=== PATIENT | female | born 1945 | race Caucasian/White ===

== ENCOUNTER → 2017-01-05 | Outpatient (CLI) | payer MEDICARE, OTHER ==
--- NOTE | 2017-01-05 13:54 | RADRPT ---
PROCEDURE: XR Pelvis and Hips. CLINICAL INDICATION: Pelvic pain. Bilateral hip pain. TECHNIQUE: Five views. Frontal pelvis. Frontal and lateral right hip. Frontal and lateral left hip. COMPARISON: No prior studies are available for comparison. FINDINGS: There is no fracture or dislocation. The soft tissues are normal. Articular surfaces are intact. There is no lytic or blastic lesion. There is no radiopaque foreign body. IMPRESSION: 1. Unremarkable x-ray pelvis and bilateral hips. RPTAT: QQ .Dangelo Peralta MD, MD Date Time Electronically viewed and signed by .Dangelo Peralta MD, MD on 01/05/2017 13:53 .R/
== END | disposition home or self-care (01) ==
LOC: HKI 13:45
PROVIDERS: ATTEND Orthopaedic Surgery
DX: M70.61 Trochanteric bursitis, right hip (principal); M70.62 Trochanteric bursitis, left hip; M25.551 Pain in right hip; M25.552 Pain in left hip
CPT/HCPCS: 20610; 73523; G0463

== ENCOUNTER → 2017-01-12 | Outpatient (CLI) | payer MEDICARE, OTHER | END | disposition home or self-care (01) | LOC: HKI 13:59 | PROVIDERS: ATTEND Orthopaedic Surgery | DX: M70.61 Trochanteric bursitis, right hip (principal); M70.62 Trochanteric bursitis, left hip; M25.551 Pain in right hip; M25.552 Pain in left hip; M51.36 Other intervertebral disc degeneration, lumbar region; M54.16 Radiculopathy, lumbar region | CPT/HCPCS: 20610; J1030 ==

== ENCOUNTER 2017-09-02 14:22 | Emergency (ER) | payer MEDICARE, OTHER ==
[~2017-09-02] VITALS: Wt 66.0 kg
--- NOTE | 2017-09-02 15:29 | RADRPT ---
PROCEDURE: US Lower extremity Venous. CLINICAL INDICATION: Pain and swelling TECHNIQUE: Multiple sonographic images of the right lower extremity deep venous system was obtaine d utilizing grayscale, color-flow, compressive sonography and doppler imaging with augmentation. Th e images were reviewed on a PACS workstation. COMPARISON: None. FINDINGS: There is normal compressibility and flow within the right common femoral, deep femoral, superficial femoral and popliteal veins. Normal respiratory variation and augmentation is seen. There is normal color flow and compressibility of right posterior tibial and peroneal veins IMPRESSION: No sonographic evidence for right lower extremity deep venous thrombosis. RPTAT: HH .Michael Mckeon MD, MD Date Time Electronically viewed and signed by .Michael Mckeon MD, on 09/02/2017 15:29 .W/
--- NOTE | 2017-09-02 16:01 | ERD ---
ER Documentation Chief Complaint Date/Time DATE: 09/02/17 Chief Complaint Sent by PMD to rule out DVT HPI The patient is a 72-year-old female who presents to the Emergency Department with complaint of right calf pain. The patient reports a history of an "arthritic back" and "sciatic nerve pain" that has been present for "some time. " She notes that recently, her sciatic nerve pain has been radiating down into the right lateral calf. She was seen by her primary medical provider today, Dr. Ricci Carey, at which time she was advised that her symptoms are likely secondary to her underlying sciatica, but she should present to the Emergency Department for ultrasound imaging to rule out DVT. She does note 4 recent long airplane flights. Otherwise, she denies any exogenous estrogen use, recent surgeries, cough, shortness of breath, chest pain, weakness, calf swelling/ redness, or history of DVT/PE. She reports 0/10 pain at this time. No other complaints. ROS All systems reviewed and are negative except as per history of present illness. PMhx/Soc History of Surgery: Yes (breast, plastic sx face) Anesthesia Reaction: No Hx Neurological Disorder: No Hx Respiratory Disorders: No Hx Cardiac Disorders: Yes (htn, murmur) Hx Psychiatric Problems: No Hx Miscellaneous Medical Probl: No Hx Alcohol Use: Yes (occ) Hx Substance Use: No Hx Tobacco Use: No Smoking Status: Never smoker Physical Exam Vitals Vital Signs Date Time Temp Pulse Resp B/P Pulse Ox O2 Delivery O2 Flow Rate FiO2 09/02/17 14:26 97.9 83 20 137/65 99 Physical Exam Const: Well-developed, well-nourished, in no acute distress. Head: Atraumatic Eyes: Normal Conjunctiva ENT: Normal External Ears, Nose and Mouth. Neck: Supple. Full range of motion. Resp: Clear to auscultation bilaterally Cardio: Regular rate and rhythm Skin: No petechiae or rashes Ext: No clubbing, cyanosis, or edema. No calf swelling or calf tenderness. Negative Day's sign. Compartments are soft. No focal erythema or edema. Neur: Awake and alert Psych: Cooperative. Appropriate. Procedures/MDM DIAGNOSTIC TESTS AND INTERPRETATION: PROCEDURE: US Lower extremity Venous. TECHNIQUE: Multiple sonographic images of the right lower extremity deep venous system was obtained utilizing grayscale, color-flow, compressive sonography and doppler imaging with augmentation. The images were reviewed on a PACS workstation. COMPARISON: None. FINDINGS: There is normal compressibility and flow within the right common femoral, deep femoral, superficial femoral and popliteal veins. Normal respiratory variation and augmentation is seen. There is normal color flow and compressibility of right posterior tibial and peroneal veins IMPRESSION:No sonographic evidence for right lower extremity deep venous thrombosis. .Michael Mckeon MD, MD Date Time Electronically viewed and signed by .Michael Mckeon MD, on 09/02/2017 15:29 MEDICAL DECISION MAKING: This is a 72-year-old FEmale presenting to the Emergency Department with complaint of right lower extremity pain. On physical examination, no calf tenderness, erythema, swelling, or gross deformity was noted. The patient has a negative Homans sign. No recent history of trauma. No chest pain or shortness of breath. Ultrasound imaging performed was negative for acute DVT. At this time the patient is in stable condition and therefore can be discharged home with strict return precautions for signs of deteriorating or worsening condition. The patient is advised to follow up with their primary care provider within 2-3 days for reevaluation and further management, or return to the ER sooner for any worsening symptoms. I shared my medical decision making and plan with the patient at length and in great detail , and the patient verbally understands and agrees with the plan for further observation and care as an outpatient. At the time of discharge, all questions were answered. Departure Diagnosis: Primary Impression: Pain of right calf Additional Impression: History of sciatica Condition: Stable Patient Instructions: Preventing Deep Vein Thrombosis, Understanding Sciatica Additional Instructions: Call your primary care doctor TOMORROW for an appointment during the next 2-3 days.See the doctor sooner or return here if your condition worsens before your appointment time. FREDDIE SOLORIO PA-C Sep 02, 2017 16:01
== END 2017-09-02 16:30 | disposition home or self-care (01) ==
LOC: FTE 14:22
DX: M79.604 Pain in right leg (principal); I10 Essential (primary) hypertension; Z87.39 Personal history of other diseases of the musculoskeletal system and connective tissue
CPT/HCPCS: 93971

== ENCOUNTER 2018-02-08 13:20 | Inpatient (IN) | END 2018-02-10 13:30 | disposition home or self-care (01) | DRG 517 ==

== ENCOUNTER 2019-05-30 09:55 | Inpatient (IN) | payer MEDICARE, OTHER ==
--- NOTE | 2019-05-26 14:23 | PREOPHP ---
DATE OF ADMISSION: 05/30/2019 PREOPERATIVE MEDICAL HISTORY AND PHYSICAL: Patient to have surgery with Dr. Ricci Morales, 05/30/2019. REASON FOR CONSULTATION: Consultation requested by Dr. Ricci Morales for medical evaluation and cl earance of a 73-year-old woman about to undergo surgery. Thank you, Dr. Morales, for allowing us to participate in the care of this patient. HISTORY OF PRESENT ILLNESS: La Mni is a 73-year-old woman who has had issues with her back, mos t recent surgery was a laminectomy in 01/2018, which did not totally get rid of her problem and curre ntly being admitted for anterior and posterior fusion of her lumbar spine. PAST MEDICAL AND SURGICAL HISTORY: She has not had any medical hospitalizations. Her pregnancies we re vaginal deliveries. SURGERIES: Included laminectomy as mentioned on 01/2018, cosmetic surgery, and right breast biopsy m any years ago. She has not broken any bones. MEDICATIONS: She is currently taking the followin. Benicar 20 mg a day. 2. Pravastatin 20 mg a day. 3. Boniva 150 mg a day. 4. Variety of supplements. ALLERGIES: SHE IS NOT ALLERGIC TO ANY MEDICATIONS. SOCIAL HISTORY: The patient is , has a son and a daughter and 4 grandchildren. She does not smoke. Alcohol socially. Does drink coffee. Has no difficulty sleeping at night and is currently retired. FAMILY HISTORY: Both parents are . Father at age 76, had lung cancer and an [place]. Tere fisher at age 82 of a stroke, hypertension and 1 brother from a bleeding ulcer in his 50s. There is a family history of heart, cancer, hypertension, and stroke. REVIEW OF SYSTEMS: HEENT: Periodic ocular migraines and occasional headaches. CARDIORESPIRATORY: Denies any chest pain or shortness of breath. GASTROINTESTINAL: No melena or hematemesis, but does have irritable bowel syndrome. GENITOURINARY: No urgency, frequency. GYNECOLOGIC: Postmenopause. Up to date. MUSCULOSKELETAL: Positive for back pain. NEUROPSYCHIATRIC: Unremarkable. GENERAL HEALTH: As above. PHYSICAL EXAMINATION: VITAL SIGNS: The patient's blood pressure was 136/64, pulse was 88 and regular, respirations were 18 , temperature 98.3. Height 5 feet 4 inches, weight 138.5 pounds. GENERAL: The patient was noted to be a well-developed, well-nourished female in no apparent acute di stress, oriented to time, place, and person. HEAD, EARS, EYES, NOSE AND THROAT: Head was atraumatic. Eyes: Pupils were equal, reactive to light and accommodation. Fundi were benign. Tympanic membranes were unremarkable. Nose was negative. M outh was unremarkable. Fair oral hygiene was present. NECK: Supple without any rigidity. Trachea was midline. Thyroid was within normal limits. Neck ve ins were flat. Carotid pulses were equal. No bruits were heard. BACK: Remarkable in the fact that she had a fairly severe lumbar scoliosis deformity. Scar from keyanna or surgery was noted as well. CHEST: Symmetrical. Breasts and axillary exam did not reveal any obvious masses. Right breast, gvain e scarring with no axillary or breast masses. LUNGS: Clear to percussion and auscultation. HEART: PMI is fifth intercostal space at the midclavicular line. Regular sinus rhythm was noted. N o significant murmurs, rubs, or gallops being elicited. ABDOMEN: Soft, good bowel sounds were noted. No significant organomegaly, masses, or tenderness. GENITALIA: PELVIC/RECTAL: Per educational therapist. EXTREMITIES: Did not reveal any clubbing, edema or cyanosis. Peripheral pulses were physiologic. SKIN: Moist and warm without any eruptions. No gross lymphadenopathy was noted. NEUROLOGIC: Grossly intact. IMPRESSION: 1. Lumbar disk disease and lumbar stenosis as well as scoliosis. 2. Hypertension. 3. Hyperlipidemia. 4. Post-menopause. 5. Stable health. LABORATORY DATA: Review of laboratory and other data revealed the following: The patient's chemistr y panel revealed electrolytes that revealed a sodium of 129, chloride of 91 compatible with diuretic use, normal potassium and CO2 glucose random was 115, BUN and creatinine were normal. Calcium and ur ic acid proteins were normal. Liver function tests revealed minimal elevations of SGPT, SGOT, magnes ium and serum iron were normal. CBC, UA, PT and PTT were normal. Patient's chest x-ray revealed a k yphotic deformity, some degenerative joint disease, no acute infiltrates were noted nor were there an y acute cardiopulmonary changes noted. EKG per Dr. Greenfield, patient's elementary esl teacher was giving h er cardiac clearance from what I understand. It showed no acute changes or any changes that would p revent her from having her current surgery. DISCUSSION: Dr. Morales, I see no contraindication to this patient undergoing current proposed henry tito under desired form of anesthesia. I feel she is a suitable candidate at this particular point i n time and will be more than happy to follow her along with you during her stay at [facility]. Thank you again, Dr. Morales, for allowing us to participate in the care of this patient. Dictated By: YU EDGAR MD SS/NTS Conf#: [id number] DID#: [id number] CC: RICCI MORALES MD;*EndCC*
[~2019-05-30] VITALS: Ht 162.6 cm; Wt 62.2 kg
[2019-05-30] VITALS (26 sets, daily range): BP systolic 130–171; BP diastolic 60–92; PULSE 81–129; RESP 8–26; Ht 162.6 cm; Wt 62.2 kg
[~2019-05-30 09:55] MED LIST: BROM500T2 PO; IBAN150T7 PO; OLME20TA PO; PRAV20TA2 PO
[2019-05-30] MEDS ORDERED: THROMBIN 5000 UNIT VIAL ONE (10:55)
[2019-05-30] MEDS ORDERED: BUPIVACAINE 0.5%/EPI (SDV) 30 ML INJ ONE (10:55)
[2019-05-30] MEDS ORDERED: CA CHLORIDE 10% 10 ML SYRINGE ONE (10:56)
[2019-05-30] MEDS ORDERED: HEPARIN 1000 UNITS/ML 10 ML INJ ONE (10:57)
[2019-05-30] MEDS ORDERED: ROCURONIUM 50 MG INJ ONE (11:06)
[2019-05-30] MEDS ORDERED: CEFAZOLIN 1 GM INJ ONE (11:06)
[2019-05-30] MEDS ORDERED: NEOSTIGMINE 3 MG/3 ML SYRINGE ONE (11:06)
[2019-05-30] MEDS ORDERED: GLYCOPYRROLATE 0.4 MG INJ ONE (11:06)
[2019-05-30] MEDS ORDERED: DESFLURANE 15 MIN ONE (11:06)
[2019-05-30] MEDS ORDERED: PROPOFOL 20 ML ONE (11:06)
[2019-05-30] MEDS ORDERED: DEXAMETHASONE 4 MG/ML 5 ML INJ ONE (11:07)
[2019-05-30] MEDS ORDERED: MIDAZOLAM 1 MG/ML 2 ML INJ ONE (11:07)
[2019-05-30] MEDS ORDERED: ONDANSETRON 4 MG INJ ONE (11:07)
[2019-05-30] MEDS ORDERED: POLYMYXIN/BACITRACIN 1L IRRIG ONE (11:10)
[2019-05-30] MEDS ORDERED: LACTATED RINGER'S 1,000 ML IV SCH (11:30)
--- NOTE | 2019-05-30 11:30 | PREAC ---
Date/Time of Note Date/Time of Note DATE: 05/30/19 TIME: Anesthesia Eval and Record Evaluation Time Pre-Procedure Interview DATE: 05/30/19 TIME: Age 73 Sex female NPO: 8 hrs Preoperative diagnosis DEGENERATIVE SCOLIOSIS Planned procedure ANTERIOR LUMBAR INTERBODY FUSION, RETROPERITONEAL OR FAR LATERAL APPROACH, AUTOGRAFT, ALLOGRAFT, SYNTHETIC GRAFT, BONE MARROW ASPIRATION INSTRUMENTATION ILIAC CREST BONE GRAFT, L2-L3 AND L3-L4 Past Medical History Past Medical History: Includes Cardio: HTN, Dyslipidemia Surgery & Anesthesia Issues No known issue Meds Anticoagulation: No Beta Iman within 24 hr: No Reason Beta Iman not given: Pt. not on B-Iman Reported Medications Bromelains (BROMELAINS) 500 Mg Tablet, 500 MG PO DAILY, TAB 02/08/18 Ibandronate Sodium* (Boniva*) 150 Mg Tablet, 150 MG PO ONCE A MONTH, TAB 02/08/18 Olmesartan Medoxomil (Olmesartan Medoxomil) 20 Mg Tablet, 20 MG PO DAILY, TAB 02/08/18 Pravastatin Sodium (Pravastatin Sodium) 20 Mg Tablet, 20 MG PO HS, TAB 02/08/18 Meds reviewed: Yes Allergies Coded Allergies: morphine (Verified Allergy, Intermediate, 05/30/19) acetaminophen (Verified Adverse Reaction, Unknown, VOMITING, 02/08/18) hydrocodone (Verified Adverse Reaction, Unknown, VOMITING, 02/08/18) Allergies Reviewed: Yes Labs/Studies Labs Reviewed: Reviewed by anesthesiologist test: N/A Studies: ECG, CXR Pre-procedure Exam Last vitals Vital Signs Date Temp Pulse Resp B/P (MAP) Pulse Ox O2 O2 Flow FiO2 Time Delivery Rate 05/30/19 97.3 81 18 155/91 96 Room Air 11:11 (112) Airway: Adequate mouth opening Mallampati: Mallampati II Teeth: Normal Lung: Normal Heart: Normal ASA Physical Status ASA physical status: 2 Emergency: None Planned Anesthetic General/MAC: ETT Pre-operative Attestations Prior to commencing anesthesia and surgery, the patient was re-evaluated, there was verification of: *The patient's identity *The results of appropriate recent lab work and preoperative vital signs *The above evaluation not changing prior to induction *Anesthetic plan, risk benefits, alternative and complications discussed with patient/family; questions answered; patient/family understands, accepts and wishes to proceed. FRANCISCO JAVIER RUSSELL May 30, 2019 11:30
--- NOTE | 2019-05-30 12:19 | HPN ---
Date/Time of Note Date/Time of Note DATE: 05/30/19 TIME: 12:19 Interval H&P Admission Note Pt. seen H&P reviewed: No system changes JACKSON MIRANDA PA-C May 30, 2019 12:19
[2019-05-30] MEDS ORDERED: IPRATROPIUM (NEB) 0.5 MG/2.5 ML AMP HHN PRN (12:30)
[2019-05-30] MEDS ORDERED: DIPHENHYDRAMINE 25 MG CAP PO PRN (12:30)
[2019-05-30] MEDS ORDERED: LABETALOL HCL 20MG INJ IV PRN (12:30)
[2019-05-30] MEDS ORDERED: AL HYDROX/MG HYDROX/SIMETH 30 ML CUP PO PRN (12:30)
[2019-05-30] MEDS ORDERED: FENTAnyl 50 MCG/ML VIAL IV PRN ×3 (12:30)
[2019-05-30] MEDS ORDERED: HYDROmorphONE 1 MG/5 ML IV SYRINGE IV PRN ×3 (12:30)
[2019-05-30] MEDS ORDERED: EPHEDrine 25 MG/5 ML SYG IV PRN (12:30)
[2019-05-30] MEDS ORDERED: CEFAZOLIN 1 GM/50 ML (PMX) 50 ML IVPB SCH (12:30)
[2019-05-30] MEDS ORDERED: CYCLOBENZAPRINE 10 MG TAB PO PRN (12:30)
[2019-05-30] MEDS ORDERED: ACETAMINOPHEN 325 MG TAB PO PRN (12:30)
[2019-05-30] MEDS ORDERED: MIDAZOLAM 1 MG/ML 2 ML INJ IV PRN (12:30)
[2019-05-30] MEDS ORDERED: MEPERIDINE 25 MG INJ IV PRN (12:30)
[2019-05-30] MEDS ORDERED: TRIMETHOBENZAMIDE 100 MG/ML VIAL IM PRN (12:30)
[2019-05-30] MEDS ORDERED: BISACODYL 10 MG SUPP PR PRN (12:30)
[2019-05-30] MEDS ORDERED: ALBUTEROL 0.083% (NEB) 2.5 MG/3 ML AMP HHN PRN (12:30)
[2019-05-30] MEDS ORDERED: ONDANSETRON 4 MG INJ IV PRN ×2 (12:30)
[2019-05-30] MEDS ORDERED: DIPHENHYDRAMINE 50 MG INJ IV PRN ×2 (12:30)
[2019-05-30] MEDS ORDERED: CEPASTAT LOZENGE MT PRN (12:30)
[2019-05-30] MEDS ORDERED: NALOXONE (0.4 MG/ML) INJ IV PRN (12:30)
[2019-05-30] MEDS ORDERED: hydrALAzine 20 MG INJ IV PRN (12:30)
[2019-05-30] MEDS ORDERED: HYDROmorphONE 0.5 MG/0.5 ML SYG IV PRN (12:30)
[2019-05-30] MEDS ORDERED: hydrALAzine 20 MG INJ ONE (14:11)
[2019-05-30] MEDS ORDERED: SUGAMMADEX SODIUM 200 MG/2 ML VIAL IV ONE (15:07)
[2019-05-30] MEDS ORDERED: FENTAnyl 50 MCG/ML VIAL ONE (15:23)
--- NOTE | 2019-05-30 15:29 | SIPON ---
Date/Time of Note Date/Time of Note DATE: 05/30/19 TIME: 15:28 Operative Report Preoperative Diagnosis Degenerative scoliosis Postoperative Diagnosis Degenerative scoliosis Operation/Procedure Performed L2-3 and L3-4 anterior fusion Surgeon see signature line patient support assistant Rosalba Cross Anesthesia: general Estimated blood loss: 10 - 50 ml's Transfusion Required none Specimen Disc Grafts/Implants Mcgregor Complications none MEAGAN DURAN MD May 30, 2019 15:29
--- NOTE | 2019-05-30 15:35 | PAC ---
Date/Time of Note Date/Time of Note DATE: 05/30/19 TIME: 15:35 Post-Anesthesia Notes Post-Anesthesia Note Last documented vital signs Vital Signs Date Temp Pulse Resp B/P (MAP) Pulse Ox O2 O2 Flow FiO2 Time Delivery Rate 05/30/19 97.3 81 18 155/91 96 Room Air 11:11 (112) Activity: WNL Respiratory function: WNL Cardiovascular function: WNL Mental status: Baseline Pain reasonably controlled: Yes Hydration appropriate: Yes Nausea/Vomiting absent: Yes Freddie Rodriguez M.D. May 30, 2019 15:35
[2019-05-30] MEDS: HYDROmorphONE 0.2 MG/ML PCA IV SCH ×2 (16:00→21:40)
--- NOTE | 2019-05-30 17:41 | PN ---
Date/Time of Note Date/Time of Note DATE: 05/30/19 TIME: 17:39 Assessment/Plan VTE Prophylaxis SCD applied (from Nsg): Yes SCD contraindicated: other (Immediately post anterior and posterior spinal fusion) Pharmacological prophylaxis: heparin Lines/Catheters IV Catheter Type (from Nrsg): Peripheral IV Assessment/Plan Problems: (1) S/P lumbar and lumbosacral fusion by anterior technique Onset Date: ~ 05/30/2019 Status: Acute Comment: Postop without apparent complications. Continue to follow her along. Anticoagulation and SCD devices. (2) Hyperlipidemia Status: Chronic Comment: And continue with statin therapy. Qualifiers: Hyperlipidemia type: pure hypercholesterolemia Qualified Codes: E78.00 - Pure hypercholesterolemia, unspecified (3) Hypertension Status: Chronic Comment: Continue with outpatient regimen without change. Qualifiers: Hypertension type: essential hypertension Qualified Codes: I10 - Essential (primary) hypertension Results 24hrs Laboratory Tests Test 05/30/19 13:20 Urine Color STRAW Urine Clarity CLEAR Urine pH 7.0 Urine Specific Rosalie 1.008 Urine Ketones TRACE A Urine Nitrite NEGATIVE Urine Bilirubin NEGATIVE Urine Urobilinogen NEGATIVE Urine Leukocyte Esterase NEGATIVE Urine Hemoglobin NEGATIVE Urine Glucose 1+ H Urine Total Protein NEGATIVE Subjective 24 Hr Interval Summary Free Text/Dictation She is immediately postop and transferred to the orthopedic unit. Complains of significant back pain. No other complaints Constitutional: no complaints (No fevers chills or sweats) Respiratory: no complaints (No cough no wheezing no shortness of breath) Cardiovascular: no complaints (No chest pain no palpitations no orthopnea no PND) Gastrointestinal: no complaints (No nausea vomiting abdominal pain) Exam/Review of Systems Exam Vitals Vital Signs Date Temp Pulse Resp B/P (MAP) Pulse Ox O2 O2 Flow FiO2 Time Delivery Rate 05/30/19 98.8 110 17 148/65 99 17:36 (92) 05/30/19 Nasal 16:43 Cannula 05/30/19 2.0 16:13 Constitutional: alert, oriented Respiratory: clear to auscultation, normal air movement Cardiovascular: regular rate and rhythm, nl pulses Gastrointestinal: soft, nl liver, spleen, non-tender Results Results 24hrs Laboratory Tests Test 05/30/19 13:20 Urine Color STRAW Urine Clarity CLEAR Urine pH 7.0 Urine Specific Rosalie 1.008 Urine Ketones TRACE A Urine Nitrite NEGATIVE Urine Bilirubin NEGATIVE Urine Urobilinogen NEGATIVE Urine Leukocyte Esterase NEGATIVE Urine Hemoglobin NEGATIVE Urine Glucose 1+ H Urine Total Protein NEGATIVE Medications Medication Current Medications Potassium Chloride/Dextrose/ Sod Cl 1,000 ml @ 100 mls/hr Q10H IV ; Start 05/30/19 at 12:19 Hydromorphone HCl (Dilaudid) 0.2 mg Q1H PRN IV .BREAKTHROUGH PAIN; Start 05/30/19 at 12:30 Cefazolin Sodium 50 ml @ 100 mls/hr Q8H IVPB ; Start 05/30/19 at 12:30; Stop 05/31/19 at 04:59 Ondansetron HCl (Zofran Inj) 4 mg Q6H PRN IV NAUSEA/VOMITING; Start 05/30/19 at 12:30 Bisacodyl (Dulcolax Supp) [address] .CONSTIPATION; Start 05/30/19 at 12:30 Docusate Sodium (Colace) 100 mg BID PO ; Start 05/30/19 at 21:00 Al Hydrox/Mg Hydrox/Simethicone (Mag-Al Plus) 15 ml Q6H PRN PO .CONSTIPATION/DYSPEPSIA; Start 05/30/19 at 12:30 Acetaminophen (Tylenol Tab) 650 mg Q4H PRN PO GARCIA OR TEMP GREATER THAN 101.3F; Start 05/30/19 at 12:30 Cyclobenzaprine HCl (Flexeril) 5 mg TID PRN PO .MUSCLE SPASM; Start 05/30/19 at 12:30 Phenol (Cepastat Lozenge) 1 lozenge PRN PRN MT .SORE THROAT; Start 05/30/19 at 12:30 Diphenhydramine HCl (Benadryl) 25 mg Q6H PRN PO .ITCHING; Start 05/30/19 at 12:30 Diphenhydramine HCl (Benadryl) 25 mg Q6H PRN IV .ITCHING; Start 05/30/19 at 12:30 Naloxone HCl (Narcan) 0.2 mg Q2M PRN IV .RR 8 BREATHS/MIN OR LESS; Start at 12:30 Hydromorphone HCl (Dilaudid SERVICE OPERATOR) SERVICE OPERATOR to be started in PACU Q4PCA IV Last administered on 05/30/19at 16:00; Admin Dose 6 MG; Start 05/30/19 at 12:30; Stop 06/01/19 at 10:00 Miscellaneous Information 1. Hold SERVICE OPERATOR at 1,000... SERVICE OPERATOR IV ; Start 05/30/19 at 12:30 Oxycodone HCl (Roxicodone) 5 mg Q4H PRN PO MODERATE PAIN LEVEL 4-6; Start 06/01/19 at 09:30 Hydromorphone HCl (Dilaudid) 0.2 mg PACU PRN IV MILD PAIN 1-3; Start 05/30/19 at 12:30; Stop 05/30/19 at 18:00 Hydromorphone HCl (Dilaudid) 0.4 mg PACU PRN IV MOD PAIN 4-6 Last administered on 05/30/19at 16:18; Admin Dose 0.4 MG; Start 05/30/19 at 12:30; Stop 05/30/19 at 18:00 Hydromorphone HCl (Dilaudid) 0.6 mg PACU PRN IV SEVERE PAIN 7-10 Last administered on 05/30/19at 15:49; Admin Dose 0.6 MG; Start 05/30/19 at 12:30; Stop 05/30/19 at 18:00 Fentanyl (Sublimaze) 25 mcg PACU ORDER PRN IV MILD PAIN 1-3; Start 05/30/19 at 12:30; Stop 05/30/19 at 18:00 Fentanyl (Sublimaze) 50 mcg PACU ORDER PRN IV MOD PAIN 4-6; Start 05/30/19 at 12:30; Stop 05/30/19 at 18:00 Fentanyl (Sublimaze) 75 mcg PACU ORDER PRN IV SEVERE PAIN 7-10; Start 05/30/19 at 12:30; Stop 05/30/19 at 18:00 Ondansetron HCl (Zofran Inj) 4 mg PACU ORDER PRN IV NAUSEA/VOMITING Last administered on 05/30/19at 15:48; Admin Dose 4 MG; Start 05/30/19 at 12:30; Stop 05/30/19 at 18:00 Trimethobenzamide HCl (Tigan) 200 mg PACU ORDER PRN IM NAUSEA/VOMITING; Start 05/30/19 at 12:30; Stop 05/30/19 at 18:00 Labetalol HCl (Labetalol) 5 mg PACU ORDER PRN IV HIGH BLOOD PRESSURE; Start 05/30/19 at 12:30; Stop 05/30/19 at 18:00 Hydralazine HCl (Apresoline) 5 mg PACU ORDER PRN IV HIGH BLOOD PRESSURE; Start 05/30/19 at 12:30; Stop 05/30/19 at 18:00 Ephedrine Sulfate 5 mg PACU ORDER PRN IV BLOOD PRESSURE SUPPORT; Start 05/30/19 at 12:30; Stop 05/30/19 at 18:00 Albuterol (Proventil 0.083% (Neb)) 2.5 mg PACU ORDER PRN HHN .WHEEZING; Start 05/30/19 at 12:30; Stop 05/30/19 at 18:00 Ipratropium [place] (Atrovent 0.02% (Neb)) 0.5 mg PACU ORDER PRN HHN .WHEEZING; Start 05/30/19 at 12:30; Stop 05/30/19 at 18:00 Meperidine HCl (Demerol) 25 mg PACU ORDER PRN IV .RIGORS; Start 05/30/19 at 12:30; Stop 05/30/19 at 18:00 Diphenhydramine HCl (Benadryl) 25 mg PACU ORDER PRN IV .PRURITUS Last administered on 05/30/19at 16:22; Admin Dose 25 MG; Start 05/30/19 at 12:30; Stop 05/30/19 at 18:00 Midazolam HCl (Versed) 0.5 mg PACU ORDER PRN IV .ANXIETY; Start 05/30/19 at 12:30; Stop 05/30/19 at 18:00 IVANA BOSTON MD May 30, 2019 17:41
[2019-05-30] MEDS: D5W-0.45 NACL + KCL 20 MEQ 1,000 ML IV SCH ×2 (17:47→22:19)
--- NOTE | 2019-05-30 19:56 | OPR ---
DATE OF OPERATION: 05/30/2019 PREOPERATIVE DIAGNOSIS: Degenerative lumbar scoliosis with stenosis and radiculopathy: POSTOPERATIVE DIAGNOSIS: Degenerative lumbar scoliosis with stenosis and radiculopathy: PROCEDURE: 1. Anterior lumbar interbody fusion at L2-L3 and L3-L4. 2. Placement of intervertebral mechanical device at L2-L3 and L3-L4. 3. Use of allograft. 4. Use of operative microscope. 5. Use of C-arm fluoroscopy with interpretation without radiologist present. 6. Intraoperative neuromonitoring. PRIMARY SURGEON: Ricci Morales MD SECOND DECAY CONTROL OPERATOR: Rosalba Cross PA-C NEED FOR RETAIL DEPARTMENT SUPERVISOR: During this spinal surgical procedure, my assistant corporate controller was used to retract and protect the spinal nerves and dural sac. My assistant corporate controller also employed the suction catheters to evacuate blood from the surgical field to improve visualization of the neural structures. The assistant corporate controller was medically necessary to facilitate the completion of the surgery in a safe and expeditious manner. [facility] regulations, as well as hospital bylaws, preclude the use of non-licensed health care personnel, such as operating room technicians, to perform these functions. FINDINGS: Neuromonitoring at the start of the case revealed left L3 amplitude down 50%, right L4 down 30%, left L5 down 80%. At the end of the case, nerve signals returned to normal. The patient had significant disk collapse and scoliosis. IMPLANTS: 1. [place] 8 x 10 x 40 mm cage at L3-L4 and L2-L3. 2. Biosphere. ESTIMATED BLOOD LOSS: Less than 30 mL. DRAINS: None. SPECIMENS: Disk from L2-L3 and L3-L4. DRAINS: None. COMPLICATIONS OF PROCEDURES: None. ANESTHESIOLOGIST: Freddie Rodriguez MD TYPE OF ANESTHESIA: General. INDICATIONS FOR PROCEDURE: This is a 73-year-old female who had previously undergone lumbar decompression. She developed a scoliotic curvature with disk degeneration and stenosis. Given that she failed nonoperative measures, I have recommended that she undergo the above procedure. Preoperatively, we discussed risks, benefits, and alternatives. She understood and wished to proceed. DESCRIPTION OF PROCEDURE IN DETAIL: The patient was identified in the preoperative holding area, given Ancef antibiotic, taken to the operating room, where she was successfully placed under general anesthesia. Neuromonitoring leads were placed and sequential compressive devices were applied. Pagan catheter was introduced. Remote intraoperative neuromonitoring was performed by Dr. Saldana from 11:00 until 3:10 to include SSEP, MEP, and EMG performed by [facility]. The patient was placed in left lateral decubitus position and secured to the table. Bed was flexed. The patient was then prepped and draped in usual sterile fashion. Incision was made laterally over the L2-L3 and L3-L4 level. I then finger dissected into the retroperitoneal space. I then placed a dilator onto the L2-L3 level and confirmed placement using the sterile fluoroscope. I utilized neuromonitoring along the way. I then passed a guidewire followed by larger dilators. I then placed a retractor and exposed the anulus and confirmed that there were no neural elements in the field. I then made an annulotomy followed by a radical diskectomy. I prepared the endplates and placed various trials. I then took the PEEK cage, within which I placed allograft, and I impacted with the mechanical device into the L2-L3 level to complete the anterior lumbar interbody fusion at L2-L3. I then turned my attention to the L3-L4 level and repeated all the steps. I made an annulotomy followed by a radical diskectomy. I then placed various trials and chose the appropriate graft height. I then took the PEEK cage, within which I placed allograft, and I impacted the intervertebral mechanical device into the L3-L4 level to complete the anterior lumbar interbody fusion at L3-4. Once all the hardware was in place, I took AP and lateral images and I was happy with most of the hardware and alignment of the spine. The wound was then irrigated. Wound was dry. I removed the retractors and closed the wound in layers with #1 Vicryl, 2-0 Vicryl and 4-0 Monocryl closure. Dermabond was then applied. The patient was then awakened from anesthesia and taken to the recovery room in stable condition. Lap, sponge, and instrument counts were correct x2. There were no apparent complications during the procedure. The patient will be admitted to the recovery room, and once stable will be taken to the [facility] for routine postoperative care to include pain control, neurovascular checks, antibiotics, and physical therapy. The patient will return to the operating room for stage II on 05/31/2019. Dictated By: RICCI MORATAYA/NIMCO Conf#: [id number] [facility]#: [id number] MTDD
[2019-05-30] MEDS ORDERED: DOCUSATE SODIUM 100 MG CAP PO SCH (21:00)
[2019-05-30] MEDS: ATORVASTATIN 10 MG TAB PO SCH (21:16)
[2019-05-30] MEDS ORDERED: LORAZEPAM 1 MG TAB PO PRN (22:30)
[2019-05-31] VITALS (19 sets, daily range): BP systolic 100–159; BP diastolic 52–92; PULSE 19–95; RESP 10–68
[2019-05-31] MEDS ORDERED: CEFAZOLIN 2 GM/50 ML (PMX) 50 ML IVPB ONE (00:30)
[2019-05-31] MEDS: CEFAZOLIN 1 GM/50 ML (PMX) 50 ML IVPB SCH ×3 (04:35→22:41)
[2019-05-31] MEDS: D5W-0.45 NACL + KCL 20 MEQ 1,000 ML IV SCH ×2 (04:36→15:18)
--- NOTE | 2019-05-31 06:46 | PREAC ---
Date/Time of Note Date/Time of Note DATE: 05/31/19 TIME: 06:44 Anesthesia Eval and Record Evaluation Time Pre-Procedure Interview DATE: 05/31/19 TIME: 06:44 Age 73 Sex female NPO: 8 hrs Preoperative diagnosis Degenerative lumbar scoliosis with radiculopathy L2-S1 Planned procedure Anterior L4-5 interbody instrumented fusion with graft, posterior instrumented fusion L2-S1 Past Medical History Past Medical History: Includes Cardio: HTN, Dyslipidemia GI: GERD Surgery & Anesthesia Issues No known issue Meds Anticoagulation: No Beta Iman within 24 hr: No Reason Beta Iman not given: Pt. not on B-Iman Reported Medications Bromelains (BROMELAINS) 500 Mg Tablet, 500 MG PO DAILY, TAB 02/08/18 Ibandronate Sodium* (Boniva*) 150 Mg Tablet, 150 MG PO ONCE A MONTH, TAB 02/08/18 Olmesartan Medoxomil (Olmesartan Medoxomil) 20 Mg Tablet, 20 MG PO DAILY, TAB 02/08/18 Pravastatin Sodium (Pravastatin Sodium) 20 Mg Tablet, 20 MG PO HS, TAB 02/08/18 Current Medications Potassium Chloride/Dextrose/ Sod Cl 1,000 ml @ 100 mls/hr Q10H IV Last administered on 05/31/19at 04:36; Admin Dose 100 MLS/HR; Start 05/30/19 at 12:19 Hydromorphone HCl (Dilaudid) 0.2 mg Q1H PRN IV .BREAKTHROUGH PAIN; Start 05/30/19 at 12:30 Ondansetron HCl (Zofran Inj) 4 mg Q6H PRN IV NAUSEA/VOMITING; Start 05/30/19 at 12:30 Bisacodyl (Dulcolax Supp) [address] .CONSTIPATION; Start 05/30/19 at 12:30 Docusate Sodium (Colace) 100 mg BID PO Last administered on 05/30/19at 21:16; Admin Dose 100 MG; Start 05/30/19 at 21:00 Al Hydrox/Mg Hydrox/Simethicone (Mag-Al Plus) 15 ml Q6H PRN PO .CONSTIPATION/DYSPEPSIA; Start 05/30/19 at 12:30 Acetaminophen (Tylenol Tab) 650 mg Q4H PRN PO GARCIA OR TEMP GREATER THAN 101.3F; Start 05/30/19 at 12:30 Cyclobenzaprine HCl (Flexeril) 5 mg TID PRN PO .MUSCLE SPASM Last administered on 05/30/19at 17:47; Admin Dose 5 MG; Start 05/30/19 at 12:30 Phenol (Cepastat Lozenge) 1 lozenge PRN PRN MT .SORE THROAT; Start 05/30/19 at 12:30 Diphenhydramine HCl (Benadryl) 25 mg Q6H PRN PO .ITCHING; Start 05/30/19 at 12:30 Diphenhydramine HCl (Benadryl) 25 mg Q6H PRN IV .ITCHING; Start 05/30/19 at 12:30 Naloxone HCl (Narcan) 0.2 mg Q2M PRN IV .RR 8 BREATHS/MIN OR LESS; Start 05/30/19 at 12:30 Hydromorphone HCl (Dilaudid WOOL GROWER) WOOL GROWER to be started in PACU Q4PCA IV Last administered on 05/30/19at 21:40; Admin Dose 6 MG; Start 05/30/19 at 12:30; Stop 06/01/19 at 10:00 Miscellaneous Information 1. Hold WOOL GROWER at 1,000... WOOL GROWER IV ; Start 05/30/19 at 12:30 Oxycodone HCl (Roxicodone) 5 mg Q4H PRN PO MODERATE PAIN LEVEL 4-6; Start 06/01/19 at 09:30 Losartan Potassium (Cozaar) 100 mg DAILY PO ; Start 05/31/19 at 09:00 Atorvastatin Calcium (Lipitor) 10 mg HS PO Last administered on 05/30/19at 21:16; Admin Dose 10 MG; Start 05/30/19 at 21:00 Lorazepam (Ativan) 1 mg QHS PRN PO INSOMNIA or anxiety Last administered on 05/30/19at 22:29; Admin Dose 1 MG; Start 05/30/19 at 22:30 Cefazolin Sodium 50 ml @ 100 mls/hr Q8H IVPB Last administered on 05/31/19at 04:35; Admin Dose 100 MLS/HR; Start 05/31/19 at 04:30; Stop 05/31/19 at 12:59 Meds reviewed: Yes Allergies Coded Allergies: morphine (Verified Allergy, Intermediate, 05/30/19) acetaminophen (Verified Adverse Reaction, Unknown, VOMITING, 02/08/18) hydrocodone (Verified Adverse Reaction, Unknown, VOMITING, 02/08/18) Allergies Reviewed: Yes Labs/Studies Labs Reviewed: Reviewed by anesthesiologist Result Diagram: 05/31/19 0446 05/31/19 0446 Laboratory Tests 05/31/19 04:46 Blood Bank Test 05/30/19 12:24 Antibody Screen NEGATIVE Blood Product Summary Counts Blood Type A POSITIVE Crossmatch Red Blood Cells test: N/A Pre-procedure Exam Last vitals Vital Signs Date Temp Pulse Resp B/P (MAP) Pulse Ox O2 O2 Flow FiO2 Time Delivery Rate 05/31/19 98.3 95 18 159/83 97 Nasal 00:00 (108) Cannula 05/30/19 2.0 23:31 Airway: Adequate mouth opening Mallampati: Mallampati I Teeth: Normal Lung: Normal Heart: Normal ASA Physical Status ASA physical status: 2 Emergency: None Planned Pain Management Parenteral pain med Pre-operative Attestations Prior to commencing anesthesia and surgery, the patient was re-evaluated, there was verification of: *The patient's identity *The results of appropriate recent lab work and preoperative vital signs *The above evaluation not changing prior to induction *Anesthetic plan, risk benefits, alternative and complications discussed with patient/family; questions answered; patient/family understands, accepts and wishes to proceed. KATY NICOLE MD May 31, 2019 06:46
[2019-05-31] MEDS ORDERED: SURGIFOAM POWDER 1 GM KIT ONE (06:48)
[2019-05-31] MEDS ORDERED: GELATIN SIZE 100 SPONGE ONE (06:49)
[2019-05-31] MEDS ORDERED: BUPIVACAINE 0.25%/EPI (SDV) 30 ML INJ ONE (06:49)
[2019-05-31] MEDS ORDERED: HEPARIN 1000 UNITS/ML 10 ML INJ ONE (06:49)
[2019-05-31] MEDS ORDERED: THROMBIN 5000 UNIT VIAL ONE (06:49)
--- NOTE | 2019-05-31 07:00 | PN ---
Date/Time of Note Date/Time of Note DATE: 05/31/19 TIME: 06:59 Assessment/Plan Lines/Catheters IV Catheter Type (from Nrs): Peripheral IV Pagan in Place (from Nrs): Yes Assessment/Plan Assessment/Plan Patient is doing well postop day #1. We will go to operating room for stage II today. Subjective 24 Hr Interval Summary Doing well Exam/Review of Systems Vital Signs Vitals Vital Signs Date Temp Pulse Resp B/P (MAP) Pulse Ox O2 O2 Flow FiO2 Time Delivery Rate 05/31/19 98.3 95 18 159/83 97 Nasal 00:00 (108) Cannula 05/30/19 2.0 23:31 Intake and Output 05/30/19 05/30/19 05/31/19 1515:00 23:00 07:00 IntakeIntake Total 2250 ml 1950 ml OutputOutput Total 140 ml 2400 ml BalanceBalance 2110 ml -450 ml Exam Free Text/Dictation Neuro intact Results Result Diagram: 05/31/19 0446 05/31/19 0446 MEAGAN DURAN MD May 31, 2019 07:00
[2019-05-31] MEDS ORDERED: PROPOFOL 20 ML ONE (07:08)
[2019-05-31] MEDS ORDERED: ROCURONIUM 50 MG INJ ONE ×2 (07:08→10:04)
[2019-05-31] MEDS ORDERED: NEOSTIGMINE 3 MG/3 ML SYRINGE ONE (07:08)
[2019-05-31] MEDS ORDERED: LIDOCAINE 2% (SDV) 5 ML INJ ONE (07:08)
[2019-05-31] MEDS ORDERED: GLYCOPYRROLATE 0.4 MG INJ ONE ×2 (07:08→10:05)
[2019-05-31] MEDS ORDERED: SUCCINYLCHOLINE CHLORIDE 100 MG/5 ML SYG IV ONE (07:08)
[2019-05-31] MEDS ORDERED: MEPERIDINE 100 MG INJ ONE (07:10)
[2019-05-31] MEDS ORDERED: CEFAZOLIN 1 GM INJ ONE (07:21)
[2019-05-31] MEDS ORDERED: SEVOFLURANE 15 MIN ONE (07:30)
[2019-05-31] MEDS ORDERED: MIDAZOLAM 1 MG/ML 2 ML INJ ONE (07:31)
[2019-05-31] MEDS ORDERED: MAGNESIUM SULFATE 4 GM/100 ML 100 ML IVPB ONE (08:30)
[2019-05-31] MEDS ORDERED: ATROPINE 1 MG/10 ML SYRINGE ONE (09:02)
[2019-05-31] MEDS ORDERED: EPHEDrine 25 MG/5 ML SYG ONE (09:02)
--- NOTE | 2019-05-31 10:11 | SIPON ---
Date/Time of Note Date/Time of Note DATE: 05/31/19 TIME: 10:11 Operative Report Preoperative Diagnosis Lumbar scoliosis Postoperative Diagnosis Lumbar scoliosis Operation/Procedure Performed Lumbar fusion Surgeon see signature line phlebotomist medical lab assistant Tay Anesthesia: general Estimated blood loss: 150 - 200 ml's Transfusion Required none Specimen Disc Grafts/Implants Cage and screws Complications none MEAGAN DURAN MD May 31, 2019 10:11
[2019-05-31] MEDS ORDERED: POLYMYXIN/BACITRACIN 1L IRRIG ONE (12:37)
[2019-05-31] MEDS ORDERED: ONDANSETRON 4 MG INJ ONE (12:54)
[2019-05-31] MEDS ORDERED: METOCLOPRAMIDE 10 MG INJ ONE (12:54)
[2019-05-31] MEDS ORDERED: DIPHENHYDRAMINE 50 MG INJ IV PRN ×2 (13:30→14:00)
[2019-05-31] MEDS ORDERED: HYDROmorphONE 0.5 MG/0.5 ML SYG IV PRN (13:30)
[2019-05-31] MEDS ORDERED: ACETAMINOPHEN 325 MG TAB PO PRN (13:30)
[2019-05-31] MEDS ORDERED: DIPHENHYDRAMINE 25 MG CAP PO PRN (13:30)
[2019-05-31] MEDS ORDERED: CEPASTAT LOZENGE MT PRN (13:30)
[2019-05-31] MEDS ORDERED: CYCLOBENZAPRINE 10 MG TAB PO PRN (13:30)
[2019-05-31] MEDS ORDERED: oxyCODONE 5 MG TAB PO PRN (13:30)
[2019-05-31] MEDS ORDERED: NALOXONE (0.4 MG/ML) INJ IV PRN (13:30)
[2019-05-31] MEDS ORDERED: MEPERIDINE 25 MG INJ ONE (13:50)
[2019-05-31] MEDS ORDERED: HYDROmorphONE 1 MG/5 ML IV SYRINGE IV ONE (13:51)
[2019-05-31] MEDS ORDERED: HYDROmorphONE 1 MG/5 ML IV SYRINGE IV PRN ×3 (14:00)
[2019-05-31] MEDS ORDERED: EPHEDrine 25 MG/5 ML SYG IV PRN (14:00)
[2019-05-31] MEDS ORDERED: FENTAnyl 50 MCG/ML VIAL IV PRN ×2 (14:00)
[2019-05-31] MEDS ORDERED: ONDANSETRON 4 MG INJ IV PRN (14:00)
[2019-05-31] MEDS ORDERED: MEPERIDINE 25 MG INJ IV PRN (14:00)
[2019-05-31] MEDS ORDERED: hydrALAzine 20 MG INJ IV PRN (14:00)
[2019-05-31] MEDS ORDERED: METOCLOPRAMIDE 10 MG INJ IV PRN (14:00)
[2019-05-31] MEDS ORDERED: LABETALOL HCL 20MG INJ IV PRN (14:00)
[2019-05-31] MEDS ORDERED: MIDAZOLAM 1 MG/ML 2 ML INJ IV PRN (14:00)
--- NOTE | 2019-05-31 14:01 | OPR ---
DATE OF OPERATION: 05/31/2019 PREOPERATIVE DIAGNOSIS: Degenerative disk disease, lumbosacral spine. POSTOPERATIVE DIAGNOSIS: Degenerative disk disease, lumbosacral spine. OPERATION PERFORMED: 1. Anterior retroperitoneal exposure interbody fusion L5-S1. 2. Anterior retroperitoneal exposure interbody fusion L4-L5. SURGEON: Darío Novak MD CO-SURGEON: Ricci Morales MD ANESTHESIA: General. ESTIMATED BLOOD LOSS: 50 mL. CONSENT: Risks, benefits, complications, alternative therapies explained to the [facility] and the [facility], consent obtained. OPERATIVE TECHNIQUE: The patient was placed in supine position, prepped and draped in usual sterile fashion. Timeout was called, antibiotics was given. I made a 10 cm incision in longitudinal fashion from the umbilicus down to the xiphoid process. Incision was taken down to subcutaneous tissue whic h was then opened using electrocautery. Left anterior rectus sheath was opened in the direction of t he wound. Rectus muscle was dissected laterally and retroperitoneal space was entered. I put the Kemar okwalter retractor, retracting the bowel contents to the right, left rectus muscle to the left. I di ssected the left common iliac artery and vein, external iliac artery and vein. The left iliolumbar v ein and artery were ligated using titanium clip and suture ligatures. The lowest segmental vessels o n the left side in the middle sacral vessels were ligated using titanium clips. Exposure for L4 to L 5 was obtained by lateralizing the aorta, vena cava and left common iliac artery and vein. Exposure of L4-L5 was obtained between the right and left common iliac artery and vein. We proceeded with the diskectomy and placement of the new cage. Please refer to Dr. Morales's dictations for the detail s of that operation. After all x-rays were satisfactorily read by Dr. Morales, the needle count an d sponge count was correct. The wound was irrigated using antibiotic solution. Anterior rectus krishnamurthy th were closed using a #1 Vicryl suture in a running fashion. Subcutaneous tissues were closed using 2-0 Vicryl and skin was closed using 4-0 Monocryl suture with Steri-Strips. Patient tolerated proce dure well. Dictated By: DARÍO NOVAK MD FM/NTS Conf#: [id number] DID#: [id number] CC: RICCI MORALES MD;*[facility]*
--- NOTE | 2019-05-31 14:05 | CONS ---
DATE OF ADMISSION: 05/30/2019 DATE OF CONSULTATION: 05/31/2019 TYPE OF CONSULTATION: Cardiothoracic. REASON FOR CONSULTATION: Evaluation for a spine exposure. HISTORY OF PRESENT ILLNESS: This is a 73-year-old female with a history of degenerative disk disease , lumbosacral spine. The patient is here to undergo anterior retroperitoneal exposure and interbody fusion of lumbosacral spine. PAST MEDICAL HISTORY: Hypertension, hyperlipidemia. PAST SURGICAL HISTORY: None. The patient has had 2 vaginal deliveries. ALLERGIES: NONE. SOCIAL HISTORY: No smoking, drinking or drug use. MEDICATIONS: List reviewed. PHYSICAL EXAMINATION: VITAL SIGNS: Blood pressure is 120/60, pulse is 80, respirations 18. CARDIOVASCULAR: Abnormal S1, S2. No murmurs, gallops or rubs. LUNGS: Clear. ABDOMEN: Soft. EXTREMITIES: Warm. IMPRESSION: Degenerative disk disease, lumbosacral spine. RECOMMENDATIONS: We will proceed with anterior retroperitoneal exposure interbody fusion of lumbosac ral spine. Risks, benefits, complications, alternative therapies, high-risk nature of the operation fully explained to the patient and the family. Risks and benefits that were explained to the patient and the family included but not limited to bleeding, infection, damage to bowel, damage to ureter, w ound infection, wound dehiscence, DVT, PE, loss of limb, loss of life, high-risk nature of the operat ion fully explained and stressed to the patient. All questions answered. Dictated By: DARÍO ARREOLA/NIMCO Conf#: [id number] DID#: [id number]
[2019-05-31] MEDS: FENTAnyl 50 MCG/ML VIAL IV PRN ×2 (14:28→14:37)
--- NOTE | 2019-05-31 15:04 | OPR ---
DATE OF OPERATION: 05/31/2019 PREOPERATIVE DIAGNOSIS: Degenerative lumbar scoliosis status post anterior lumbar interbody fusion at L2-3 and L3-L4 with radiculopathy. POSTOPERATIVE DIAGNOSIS: Degenerative lumbar scoliosis status post anterior lumbar interbody fusion at L2-3 and L3-L4 with radiculopathy. PROCEDURE: 1. Anterior lumbar interbody fusion at L4-L5 and L5-S1. 2. Anterior hardware placement at L4-L5 and L5-S1. 3. Placement of intervertebral mechanical device at L4-L5 and L5-S1. 4. Use of allograft. 5. Use of C-arm fluoroscopy with interpretation without radiologist present. 6. Intraoperative neuromonitoring. IMPLANTS: 1. Renovis anterior titanium cage 38 x 40 x 13 mm with an 12-degree lordosis at L4-L5 and 13 x 34 x 28 11-degree lordosis at L5-S1 with anterior plate and 25 mm screws. 2. Biosphere. PRIMARY SURGEON: Ricci Morales MD. CO-SURGEON: Pérez Novak MD SECOND SUPERVISOR CIGAR PROCESSING: Rosalba Cross PA-C NEED FOR CO-SURGEON: A co-surgeon was required in order to provide the anterior spinal access. This is the standard of care. FINDINGS: Neuromonitoring at the start of the case revealed bilateral L3 amplitude down 10%, left L4 down 40%, right L4 down 20%, left L5 down 70%, right L5 down 20%, left S1 down 20%, right S1 down 60%. At the end of the case L3 was normal. L4 down 20% bilaterally. L5 was down 20% on the left, 60% on the right. S1 was down 10% on the left, 40% on the right. The patient had significant disk collapse. ESTIMATED BLOOD LOSS: 150 mL. DRAINS: None. SPECIMENS: L4-5 and L5-S1 disk was sent to Pathology. COMPLICATIONS OF PROCEDURES: None. ANESTHESIOLOGIST: Dr. Knowles. TYPE OF ANESTHESIA: General. INDICATIONS FOR PROCEDURE: This is a 73-year-old female who had previously undergone lumbar decompression. She has completed stage I, which was a lateral fusion at L2-3 and L3-L4. This is dictated separately, and performed on 05/30/2019. She presented for stage II. DESCRIPTION OF PROCEDURE IN DETAIL: The patient was identified in the preoperative holding area, given Ancef antibiotic, taken to the operating room, where she was successfully placed under general anesthesia. Neuromonitoring leads were placed, sequential compressive devices were applied. Arterial line was placed. The patient already had an A-line. The patient was placed on the operative table in supine position. All bony prominences well padded. The abdomen was then prepped and draped in a sterile fashion. Dr. Novak performed an anterior approach to the lumbar spine which he will dictate separately. Once we identified the spine, a bent spinal needle was placed and the lateral and AP film was obtained to confirm the correct level. Initially turned my attention to the L4-5 level where an annulotomy was performed followed by radical diskectomy. Endplates were prepared. I placed various trials and chose the appropriate graft height. I then took the titanium cage within which I placed allograft and I impacted the intervertebral mechanical device into the L4-5 level to complete the anterior lumbar interbody fusion at L4-5. I then placed in a separate anterior cervical plate with 25 mm screws into the L4 and L5 vertebral bodies. I then turned my attention to the L5-S1 level. This level was more collapsed. I similarly performed a radical diskectomy and prepared the endplates. I placed various trials and chose the appropriate graft height. I then took the titanium cage within which I placed allograft and I impacted intervertebral biomechanical device into the L5-S1 level to complete the anterior lumbar interbody fusion at L5-S1. I then took a separate anterior plate with 25 mm screws and placed this into the L5 and S1 vertebral bodies. Once all the hardware was in place, I took AP and lateral images and I was happy with placement of the hardware and alignment of the spine. I then irrigated the wound. Dr. Novak placed the initial shield device anteriorly and closed the wound in layers. He will dictate the closure separately. Upon completion of the closure lap, sponge, and instrument counts were correct x2. Four quadrant abdominal x-rays were obtained. There was no retained foreign bodies. There were no complications during this stage. The patient will be transitioned into the prone position for the posterior approach, which will be dictated separately. Dictated By: RICCI MORATAYA/NIMCO Conf#: [id number] DID#: [id number] [facility]
[2019-05-31] MEDS: HYDROmorphONE 0.2 MG/ML PCA IV SCH (15:16)
--- NOTE | 2019-05-31 15:33 | OPR ---
DATE OF OPERATION: 05/31/2019 PREOPERATIVE DIAGNOSES: Degenerative lumbar scoliosis, status post anterior fusion. POSTOPERATIVE DIAGNOSES: Degenerative lumbar scoliosis, status post anterior fusion. OPERATION PERFORMED: 1. Pedicle screw placement bilaterally at L2, L3, L4, L5, and S1. 2. Posterolateral fusion at L2-L3, L3-L4, L4-L5, L5-S1. 3. Use of allograft. 4. Use of C-arm fluoroscopy without radiologist present. 5. Intraoperative neuromonitoring. IMPLANTS: 1. Spineway sniper pedicle screws; 5.5 x 40 mm at L2 and L3 bilaterally, 5.5 x 45 mm left L4, 6.5 x 40 mm right L4, 6.5 x 40 mm bilaterally at L5, 7.5 x 40 mm bilaterally at S1 and 120 mm rods bilaterally. 2. Biosphere. SURGEON: Ricci Morales MD CLINICAL RN LIAISON: Rosalba Cross PA-C NEED FOR FLOOR SANDING MACHINE OPERATOR: During this spinal surgical procedure, my assistant cook was used to retract and protect the spinal nerves and dural sac. My assistant cook also employed the suction catheters to evacuate blood from the surgical field to improve visualization of the neural structures. The assistant cook was medically necessary to facilitate the completion of the surgery in a safe and expeditious manner. State of [place] regulations, as well as hospital bylaws, preclude the use of non-licensed health care personnel, such as operating room technicians, to perform these functions. FINDINGS: Neuromonitoring at the start of this stage, was normal at L2 and L3. At L4 it was down 20% bilaterally. At L5 on the right it was down 60%. At S1 on the left it was down 20% and 50% on the right. At the end of the case L4 was down 20% bilaterally. L5 was down 50% on the right. S1 was down 30% on the left and 20% on the right. Patient had osteoporotic and soft bone. ESTIMATED BLOOD LOSS: 30 mL. DRAINS: None. SPECIMENS: None. COMPLICATIONS OF PROCEDURES: None. TYPE OF ANESTHESIA: General. ANESTHESIOLOGIST: Dr. Knowles. INDICATIONS FOR PROCEDURE: This is a 73-year-old female who had previously undergone anterior stage fusion and now presented for the posterior stage. The anterior stage is dictated separately. She was placed on the operative table in prone position over Lai frame. All bony prominences were well padded. The back was prepped, draped in the usual sterile fashion. Intraoperative neuromonitoring was utilized for this stage from 10:45 until 1300 hours, performed by Dr. Saldana to include SSEP, MEP, and EMG performed by Diditz. The back was prepped, draped in usual sterile fashion. I made incisions over the L2, L3, L4, L5, and S1 pedicles bilaterally, off of midline. I then passed Jamshidi needles into the pedicles at each level. I then placed pedicle screws bilaterally at L2, L3, L4, L5, and S1. Once the screws were in place, I stimulated the screws and there is no evidence of cortical breach. I then took the appropriate size alex which I percutaneously passed and placed set screws with tightening of the set screws per shot core drill operator helper's specifications. I then removed the health and wellness coordinator rods. At this point, I took AP and lateral films and I was happy with placement of the hardware and alignment of the spine. I irrigated the wound. I prepared the posterolateral gutters and placed allograft in the posterior lateral gutters at each level to complete the posterolateral fusion at L2-L3, L3-L4, L4-L5, L5-S1. Once this was done, I closed the wound in layers with a #1 Vicryl closure for the deep fascia and a 2-0 Vicryl closure for the subcutaneous tissue. Dermabond was then applied. The patient was awakened from anesthesia and taken to the recovery room in stable condition. Lap, sponge, and instrument counts were correct x2. There were no apparent complications during the procedure. The patient will be admitted to the [facility] for routine postoperative care to include pain control, neurovascular checks, antibiotics, and physical therapy. Dictated By: RICCI MORATAYA/NIMCO Conf#: [id number] DID#: [id number] MTDEllen
[2019-05-31] MEDS: LOSARTAN 50 MG TAB PO SCH (16:20)
--- NOTE | 2019-05-31 17:42 | PN ---
Date/Time of Note Date/Time of Note DATE: 05/31/19 TIME: 17:40 Assessment/Plan VTE Prophylaxis Risk score (from Ns)>0 risk: 8 SCD applied (from Ns): Yes Pharmacological prophylaxis: heparin Lines/Catheters IV Catheter Type (from Nrs): Saline Lock Urinary Cath still in place: Yes Reason Cath still needed: urinary retention Assessment/Plan Problems: (1) S/P lumbar and lumbosacral fusion by anterior technique Onset Date: ~ 05/30/2019 Status: Acute Comment: Postop without any evidence of complications (2) S/P lumbar fusion Onset Date: ~ 05/31/2019 Status: Acute Comment: Status post second stage procedure and appears to be doing well without complications fortunately (3) Hypertension Status: Chronic Comment: Adequate blood pressure control at this time Qualifiers: Hypertension type: essential hypertension Qualified Codes: I10 - Essential (primary) hypertension (4) Hyperlipidemia Status: Chronic Comment: Maintain statin therapy Qualifiers: Hyperlipidemia type: pure hypercholesterolemia Qualified Codes: E78.00 - Pure hypercholesterolemia, unspecified (5) Hypomagnesemia Status: Acute Comment: Replace magnesium Result Diagram: 05/31/19 0446 05/31/19 0446 Results 24hrs Laboratory Tests Test 05/31/19 04:46 White Blood Count 8.3 Red Blood Count 3.53 L Hemoglobin 12.5 Hematocrit 36.4 #L Mean Corpuscular Volume 103.1 H Mean Corpuscular Hemoglobin 35.4 H Mean Corpuscular Hemoglobin Concent 34.3 Red Cell Distribution Width 12.8 Platelet Count 143 Mean Platelet Volume 9.8 Immature Granulocytes % 0.600 H Neutrophils % 87.2 H Lymphocytes % 3.3 L Monocytes % 8.8 Eosinophils % 0.0 Basophils % 0.1 Nucleated Red Blood Cells % 0.0 Immature Granulocytes # 0.050 H Neutrophils # 7.2 Lymphocytes # 0.3 L Monocytes # 0.7 Eosinophils # 0.0 Basophils # 0.0 Nucleated Red Blood Cells # 0.0 Sodium Level 128 L Potassium Level 4.3 Chloride Level 94 L Carbon Dioxide Level 26 Anion Gap 8 Blood Urea Nitrogen 4 L Creatinine 0.34 L Est Glomerular Filtrat Rate mL/min Glucose Level 148 Calcium Level 9.1 Magnesium Level 1.2 L Subjective 24 Hr Interval Summary Free Text/Dictation She is postop after the posterior spinal fusion procedure. She reports she is having less pain than yesterday. Constitutional: no complaints (No fevers chills or sweats) Respiratory: no complaints (Cough no wheezing no shortness of breath) Cardiovascular: no complaints (Chest pain no palpitations no orthopnea no PND) Gastrointestinal: no complaints Musculoskeletal: back pain Exam/Review of Systems Exam Vitals Vital Signs Date Temp Pulse Resp B/P (MAP) Pulse Ox O2 O2 Flow FiO2 Time Delivery Rate 05/31/19 20 15:00 05/31/19 106/56 99 Nasal 3.0 14:54 (73) Cannula 05/31/19 98.0 19 13:28 Intake and Output 05/30/19 05/30/19 05/31/19 1515:00 23:00 07:00 IntakeIntake Total 2250 ml 1950 ml OutputOutput Total 140 ml 2400 ml BalanceBalance 2110 ml -450 ml Constitutional: alert, oriented Respiratory: clear to auscultation, normal air movement Cardiovascular: regular rate and rhythm, nl pulses Gastrointestinal: soft, nl liver, spleen, non-tender Results Results 24hrs Laboratory Tests Test 05/31/19 04:46 White Blood Count 8.3 Red Blood Count 3.53 L Hemoglobin 12.5 Hematocrit 36.4 #L Mean Corpuscular Volume 103.1 H Mean Corpuscular Hemoglobin 35.4 H Mean Corpuscular Hemoglobin Concent 34.3 Red Cell Distribution Width 12.8 Platelet Count 143 Mean Platelet Volume 9.8 Immature Granulocytes % 0.600 H Neutrophils % 87.2 H Lymphocytes % 3.3 L Monocytes % 8.8 Eosinophils % 0.0 Basophils % 0.1 Nucleated Red Blood Cells % 0.0 Immature Granulocytes # 0.050 H Neutrophils # 7.2 Lymphocytes # 0.3 L Monocytes # 0.7 Eosinophils # 0.0 Basophils # 0.0 Nucleated Red Blood Cells # 0.0 Sodium Level 128 L Potassium Level 4.3 Chloride Level 94 L Carbon Dioxide Level 26 Anion Gap 8 Blood Urea Nitrogen 4 L Creatinine 0.34 L Est Glomerular Filtrat Rate mL/min Glucose Level 148 Calcium Level 9.1 Magnesium Level 1.2 L Medications Medication Current Medications Oxycodone HCl (Roxicodone) 5 mg Q4H PRN PO MODERATE PAIN LEVEL 4-6; Start 06/01/19 at 09:30 Losartan Potassium (Cozaar) 100 mg DAILY PO Last administered on 05/31/19at 16:20; Admin Dose 100 MG; Start 05/31/19 at 09:00 Atorvastatin Calcium (Lipitor) 10 mg HS PO Last administered on 05/30/19at 21:16; Admin Dose 10 MG; Start 05/30/19 at 21:00 Lorazepam (Ativan) 1 mg QHS PRN PO INSOMNIA or anxiety Last administered on 05/30/19at 22:29; Admin Dose 1 MG; Start 05/30/19 at 22:30 Potassium Chloride/Dextrose/ Sod Cl 1,000 ml @ 100 mls/hr Q10H IV Last administered on 05/31/19at 15:18; Admin Dose 100 MLS/HR; Start 05/31/19 at 13:18 Hydromorphone HCl (Dilaudid) 0.2 mg Q1H PRN IV .BREAKTHROUGH PAIN; Start at 13:30 Ondansetron HCl (Zofran Inj) 4 mg Q6H PRN IV NAUSEA/VOMITING; Start 05/31/19 at 13:30 Bisacodyl (Dulcolax Supp) 10 mg DAILY PRN [place] .CONSTIPATION; Start 05/31/19 at 13:30 Docusate Sodium (Colace) 100 mg BID PO ; Start 05/31/19 at 21:00 Al Hydrox/Mg Hydrox/Simethicone (Mag-Al Plus) 15 ml Q6H PRN PO .CONSTIPATION/DYSPEPSIA; Start 05/31/19 at 13:30 Acetaminophen (Tylenol Tab) 650 mg Q4H PRN PO GARCIA OR TEMP GREATER THAN 101.3F; Start 05/31/19 at 13:30 Cyclobenzaprine HCl (Flexeril) 10 mg TID PRN PO .MUSCLE SPASMS; Start 05/31/19 at 13:30 Phenol (Cepastat Lozenge) 1 lozenge PRN PRN [place] .SORE THROAT; Start 05/31/19 at 13:30 Diphenhydramine HCl (Benadryl) 25 mg Q6H PRN PO .ITCHING; Start 05/31/19 at 13:30 Diphenhydramine HCl (Benadryl) 25 mg Q6H PRN IV .ITCHING; Start 05/31/19 at 13:30 Naloxone HCl (Narcan) 0.2 mg Q2M PRN IV .RR 8 BREATHS/MIN OR LESS; Start 05/31/19 at 13:30 Hydromorphone HCl (Dilaudid SPEECH ASSISTANT) SPEECH ASSISTANT to be started in PACU Q4PCA IV Last administered on 05/31/19at 15:16; Admin Dose 6 MG; Start 05/31/19 at 13:30; Stop 06/02/19 at 09:30 Miscellaneous Information 1. Hold SPEECH ASSISTANT at 1,000... SPEECH ASSISTANT IV ; Start 05/31/19 at 13:30; Stop 06/02/19 at 10:00 Oxycodone HCl (Roxicodone) 10 mg Q4H PRN PO MODERATE PAIN LEVEL 4-6; Start 05/31/19 at 13:30 Hydromorphone HCl (Dilaudid) 0.2 mg PACU PRN IV MILD PAIN 1-3; Start 05/31/19 at 14:00; Stop 05/31/19 at 20:00 Hydromorphone HCl (Dilaudid) 0.4 mg PACU PRN IV MOD PAIN 4-6 Last administered on 05/31/19at 14:13; Admin Dose 0.4 MG; Start 05/31/19 at 14:00; Stop 05/31/19 at 20:00 Hydromorphone HCl (Dilaudid) 0.6 mg PACU PRN IV SEVERE PAIN 7-10 Last administered on 05/31/19at 14:11; Admin Dose 0.6 MG; Start 05/31/19 at 14:00; S top 05/31/19 at 20:00 Fentanyl (Sublimaze) 25 mcg PACU ORDER PRN IV MILD PAIN 1-3; Start 05/31/19 at 14:00; Stop 05/31/19 at 20:00 Fentanyl (Sublimaze) 50 mcg PACU ORDER PRN IV MOD PAIN 4-6 Last administered on 05/31/19at 14:37; Admin Dose 50 MCG; Start 05/31/19 at 14:00; Stop 05/31/19 at 20:00 Fentanyl (Sublimaze) 75 mcg PACU ORDER PRN IV SEVERE PAIN 7-10; Start 05/31/19 at 14:00; Stop 05/31/19 at 20:00 Ondansetron HCl (Zofran Inj) 4 mg PACU ORDER PRN IV NAUSEA/VOMITING; Start 05/31/19 at 14:00; Stop 05/31/19 at 20:00 Metoclopramide HCl (Reglan) 10 mg PACU ORDER PRN IV NAUSEA/VOMITING; Start at 14:00; Stop 05/31/19 at 20:00 Labetalol HCl (Labetalol) 5 mg PACU ORDER PRN IV HIGH BLOOD PRESSURE; Start 05/31/19 at 14:00; Stop 05/31/19 at 20:00 Hydralazine HCl (Apresoline) 5 mg PACU ORDER PRN IV HIGH BLOOD PRESSURE; Start 05/31/19 at 14:00; Stop 05/31/19 at 20:00 Ephedrine Sulfate 5 mg PACU ORDER PRN IV BLOOD PRESSURE SUPPORT; Start 05/31/19 at 14:00; Stop 05/31/19 at 20:00 Meperidine HCl (Demerol) 25 mg PACU ORDER PRN IV .RIGORS Last administered on 05/31/19at 14:08; Admin Dose 25 MG; Start 05/31/19 at 14:00 Diphenhydramine HCl (Benadryl) 25 mg PACU ORDER PRN IV .PRURITUS; Start 05/31/19 at 14:00; Stop 05/31/19 at 20:00 Midazolam HCl (Versed) 0.5 mg PACU ORDER PRN IV .ANXIETY; Start 05/31/19 at 14:00; Stop 05/31/19 at 20:00 Cefazolin Sodium 50 ml @ 100 mls/hr Q8H IVPB ; Start 05/31/19 at 23:00; Stop 06/01/19 at 07:29 IVANA BOSTON MD May 31, 2019 17:42
[2019-05-31] MEDS ORDERED: CEFAZOLIN 1 GM/50 ML (PMX) 50 ML IVPB SCH (18:00)
--- NOTE | 2019-05-31 19:10 | PAC ---
Date/Time of Note Date/Time of Note DATE: 05/31/19 TIME: 19:10 Post-Anesthesia Notes Post-Anesthesia Note Last documented vital signs Vital Signs Date Temp Pulse Resp B/P (MAP) Pulse Ox O2 O2 Flow FiO2 Time Delivery Rate 05/31/19 20 15:00 05/31/19 106/56 99 Nasal 3.0 14:54 (73) Cannula 05/31/19 98.0 19 13:28 Activity: WNL Respiratory function: WNL Cardiovascular function: WNL Mental status: Baseline Pain reasonably controlled: Yes Hydration appropriate: Yes Nausea/Vomiting absent: Yes Comments BT: 98.2 KATY NICOLE MD May 31, 2019 19:10
[2019-05-31] MEDS ORDERED: IOHEXOL 100 ML ONE (20:21)
[2019-05-31] MEDS ORDERED: SOD CHLORIDE 0.9% 100 ML ONE (20:21)
[2019-05-31] MEDS: ATORVASTATIN 10 MG TAB PO SCH (21:02)
[2019-05-31] MEDS: DOCUSATE SODIUM 100 MG CAP PO SCH (21:02)
[2019-06-01 00:36] VITALS: BP 96/54; PULSE 92; RESP 18
[2019-06-01 02:45] VITALS: BP 141/64; PULSE 98; RESP 19
[2019-06-01] MEDS: D5W-0.45 NACL + KCL 20 MEQ 1,000 ML IV SCH ×4 (04:20→23:49)
[2019-06-01] MEDS: HYDROmorphONE 0.2 MG/ML PCA IV SCH (06:00)
[2019-06-01] MEDS: CEFAZOLIN 1 GM/50 ML (PMX) 50 ML IVPB SCH (06:46)
[2019-06-01 07:40] VITALS: BP 113/58; PULSE 92; RESP 16
[2019-06-01] MEDS: DOCUSATE SODIUM 100 MG CAP PO SCH ×2 (08:44→20:57)
[2019-06-01] MEDS: LOSARTAN 50 MG TAB PO SCH (08:46)
[2019-06-01] MEDS ORDERED: oxyCODONE 5 MG TAB PO PRN (09:30)
[2019-06-01] MEDS: AL HYDROX/MG HYDROX/SIMETH 30 ML CUP PO PRN ×2 (11:38→18:34)
--- NOTE | 2019-06-01 12:39 | PN ---
Date/Time of Note Date/Time of Note DATE: 06/01/19 TIME: 12:36 Assessment/Plan VTE Prophylaxis Risk score (from Ns)>0 risk: 6 SCD applied (from Ns): Yes Pharmacological prophylaxis: NA/contraindicated Pharm contraindication: surgical contra Lines/Catheters IV Catheter Type (from [facility]): Saline Lock Urinary Cath still in place: Yes Reason Cath still needed: urinary retention Assessment/Plan Result Diagram: 06/01/19 0739 06/01/19 0739 Results 24hrs Laboratory Tests Test 06/01/19 07:21 06/01/19 07:39 Lab Scanned Report REFERENCE LAB White Blood Count 7.4 Red Blood Count 2.68 #L Hemoglobin 9.7 #L Hematocrit 28.2 #L Mean Corpuscular Volume 105.2 H Mean Corpuscular Hemoglobin 36.2 H Mean Corpuscular Hemoglobin Concent 34.4 Red Cell Distribution Width 12.9 Platelet Count 147 Mean Platelet Volume 10.4 Immature Granulocytes % 0.400 Neutrophils % 74.9 Lymphocytes % 7.4 L Monocytes % 16.9 H Eosinophils % 0.1 Basophils % 0.3 Nucleated Red Blood Cells % 0.0 Immature Granulocytes # 0.030 Neutrophils # 5.6 Lymphocytes # 0.6 L Monocytes # 1.3 H Eosinophils # 0.0 Basophils # 0.0 Nucleated Red Blood Cells # 0.0 Sodium Level 126 L Potassium Level 4.5 Chloride Level 94 L Carbon Dioxide Level 28 Anion Gap 4 L Blood Urea Nitrogen 4 L Creatinine 0.40 L Est Glomerular Filtrat Rate mL/min Glucose Level 95 # Calcium Level 8.3 L Phosphorus Level 3.1 Magnesium Level 1.9 Total Bilirubin 0.7 Direct Bilirubin 0.00 Indirect Bilirubin 0.7 Aspartate Amino Transf (AST/SGOT) 60 H Alanine Aminotransferase (ALT/SGPT) 40 Alkaline Phosphatase 35 L Total Protein 5.1 L Albumin 2.7 L Globulin 2.40 Albumin/Globulin Ratio 1.12 Subjective 24 Hr Interval Summary Free Text/Dictation post second surgery, remains uncomfortable. iseating, voiding. has not been up w ith p.t. yet' vs ok, labs ok, tho anemic as expected alert, lungs clear, hr ok ct was nl plan per ortho Musculoskeletal: back pain Exam/Review of Systems Exam Vitals Vital Signs Date Temp Pulse Resp B/P (MAP) Pulse Ox O2 O2 Flow FiO2 Time Delivery Rate 7/17/19 17 09:00 06/01/19 Nasal 2.0 08:00 Cannula 06/01/19 98.7 92 113/58 95 07:40 (76) Intake and Output 05/31/19 05/31/19 06/01/19 1515:00 23:00 07:00 IntakeIntake Total 2000 ml 910 ml 1530 ml OutputOutput Total 530 ml 1800 ml BalanceBalance 1470 ml 910 ml -270 ml Results Results 24hrs Laboratory Tests Test 06/01/19 07:21 06/01/19 07:39 Lab Scanned Report REFERENCE LAB White Blood Count 7.4 Red Blood Count 2.68 #L Hemoglobin 9.7 #L Hematocrit 28.2 #L Mean Corpuscular Volume 105.2 H Mean Corpuscular Hemoglobin 36.2 H Mean Corpuscular Hemoglobin Concent 34.4 Red Cell Distribution Width 12.9 Platelet Count 147 Mean Platelet Volume 10.4 Immature Granulocytes % 0.400 Neutrophils % 74.9 Lymphocytes % 7.4 L Monocytes % 16.9 H Eosinophils % 0.1 Basophils % 0.3 Nucleated Red Blood Cells % 0.0 Immature Granulocytes # 0.030 Neutrophils # 5.6 Lymphocytes # 0.6 L Monocytes # 1.3 H Eosinophils # 0.0 Basophils # 0.0 Nucleated Red Blood Cells # 0.0 Sodium Level 126 L Potassium Level 4.5 Chloride Level 94 L Carbon Dioxide Level 28 Anion Gap 4 L Blood Urea Nitrogen 4 L Creatinine 0.40 L Est Glomerular Filtrat Rate mL/min Glucose Level 95 # Calcium Level 8.3 L Phosphorus Level 3.1 Magnesium Level 1.9 Total Bilirubin 0.7 Direct Bilirubin 0.00 Indirect Bilirubin 0.7 Aspartate Amino Transf (AST/SGOT) 60 H Alanine Aminotransferase (ALT/SGPT) 40 Alkaline Phosphatase 35 L Total Protein 5.1 L Albumin 2.7 L Globulin 2.40 Albumin/Globulin Ratio 1.12 Medications Medication Current Medications Oxycodone HCl (Roxicodone) 5 mg Q4H PRN PO MODERATE PAIN LEVEL 4-6; Start 06/01/19 at 09:30 Losartan Potassium (Cozaar) 100 mg DAILY PO Last administered on 06/01/19at 08:46; Admin Dose 100 MG; Start 05/31/19 at 09:00 Atorvastatin Calcium (Lipitor) 10 mg HS PO Last administered on 05/31/19at 21:02; Admin Dose 10 MG; Start 05/30/19 at 21:00 Lorazepam (Ativan) 1 mg QHS PRN PO INSOMNIA or anxiety Last administered on 05/30/19at 22:29; Admin Dose 1 MG; Start 05/30/19 at 22:30 Potassium Chloride/Dextrose/ Sod Cl 1,000 ml @ 100 mls/hr Q10H IV Last administered on 06/01/19at 04:20; Admin Dose 100 MLS/HR; Start 05/31/19 at 13:18 Hydromorphone HCl (Dilaudid) 0.2 mg Q1H PRN IV .BREAKTHROUGH PAIN; Start 05/31/19 at 13:30 Ondansetron HCl (Zofran Inj) 4 mg Q6H PRN IV NAUSEA/VOMITING; Start 05/31/19 at 13:30 Bisacodyl (Dulcolax Supp) 10 mg DAILY PRN [place] .CONSTIPATION; Start 05/31/19 at 13:30 Docusate Sodium (Colace) 100 mg BID PO Last administered on 06/01/19at 08:44; Admin Dose 100 MG; Start 05/31/19 at 21:00 Al Hydrox/Mg Hydrox/Simethicone (Mag-Al Plus) 15 ml Q6H PRN PO .CONSTIPATION/DYSPEPSIA Last administered on 06/01/19at 11:38; Admin Dose 15 ML; Start 05/31/19 at 13:30 Acetaminophen (Tylenol Tab) 650 mg Q4H PRN PO GARCIA OR TEMP GREATER THAN 101.3F; Start 05/31/19 at 13:30 Cyclobenzaprine HCl (Flexeril) 10 mg TID PRN PO .MUSCLE SPASMS; Start 05/31/19 at 13:30 Phenol (Cepastat Lozenge) 1 lozenge PRN PRN [place] .SORE THROAT; Start 05/31/19 at 13:30 Diphenhydramine HCl (Benadryl) 25 mg Q6H PRN PO .ITCHING; Start 05/31/19 at 13:30 Diphenhydramine HCl (Benadryl) 25 mg Q6H PRN IV .ITCHING; Start 05/31/19 at 13:30 Naloxone HCl (Narcan) 0.2 mg Q2M PRN IV .RR 8 BREATHS/MIN OR LESS; Start 05/31/19 at 13:30 Hydromorphone HCl (Dilaudid TELEPHONIC NURSE CASE MANAGER) TELEPHONIC NURSE CASE MANAGER to be started in PACU Q4PCA IV Last administered on 06/01/19at 06:00; Admin Dose 6 MG; Start 05/31/19 at 13:30; Stop 06/02/19 at 09:30 Miscellaneous Information 1. Hold TELEPHONIC NURSE CASE MANAGER at 1,000... TELEPHONIC NURSE CASE MANAGER IV ; Start 05/31/19 at 13:30; Stop 06/02/19 at 10:00 Oxycodone HCl (Roxicodone) 10 mg Q4H PRN PO MODERATE PAIN LEVEL 4-6; Start 05/31/19 at 13:30 Meperidine HCl (Demerol) 25 mg PACU ORDER PRN IV .RIGORS Last administered on 05/31/19at 14:08; Admin Dose 25 MG; Start 05/31/19 at 14:00 VASYL PETTIT MD Jun 01, 2019 12:39
--- NOTE | 2019-06-01 18:07 | PN ---
Date/Time of Note Date/Time of Note DATE: 06/01/19 TIME: 18:06 Assessment/Plan Lines/Catheters IV Catheter Type (from Nrs): Saline Lock Pagan in Place (from Nrs): Yes Assessment/Plan Assessment/Plan Patient is doing fairly well status post surgery. She is postoperative day 1 and 2. Encourage ambulation to assist with her abdominal distention. Target discharge date is June 04 Subjective 24 Hr Interval Summary Complains of abdominal bloating and gas Exam/Review of Systems Vital Signs Vitals Vital Signs Date Temp Pulse Resp B/P (MAP) Pulse Ox O2 O2 Flow FiO2 Time Delivery Rate 06/01/19 18 17:00 06/01/19 Nasal 2.0 08:00 Cannula 06/01/19 98.7 92 113/58 95 07:40 (76) Intake and Output 05/31/19 05/31/19 06/01/19 1515:00 23:00 07:00 IntakeIntake Total 2000 ml 910 ml 1530 ml OutputOutput Total 530 ml 1800 ml BalanceBalance 1470 ml 910 ml -270 ml Exam Free Text/Dictation Abdomen distended but soft. No rebound tenderness. Incisions clean. Neuro intact. Results Result Diagram: 06/01/19 0739 06/01/19 0739 MEAGAN DURAN MD Jun 01, 2019 18:07
[2019-06-01 20:21] VITALS: BP 147/66; PULSE 102; RESP 18
[2019-06-01] MEDS: ATORVASTATIN 10 MG TAB PO SCH (20:57)
[2019-06-01] MEDS: ONDANSETRON 4 MG INJ IV PRN (23:49)
[2019-06-02] VITALS (7 sets, daily range): BP systolic 131–182; BP diastolic 71–111; PULSE 96–101; RESP 18
[2019-06-02] MEDS: ONDANSETRON 4 MG INJ IV PRN (05:36)
[2019-06-02] MEDS ORDERED: NACL 3% 250 ML IV SCH ×2 (08:30→10:00)
[2019-06-02] MEDS ORDERED: NACL 3% 500 ML IV SCH ×2 (08:30→22:00)
--- NOTE | 2019-06-02 08:30 | PN ---
Date/Time of Note Date/Time of Note DATE: 06/02/19 TIME: 08:26 Assessment/Plan VTE Prophylaxis Risk score (from Nsg)>0 risk: 6 SCD applied (from Nsg): Yes Pharmacological prophylaxis: heparin Lines/Catheters IV Catheter Type (from Nrsg): Peripheral IV Urinary Cath still in place: Yes Reason Cath still needed: urinary retention Assessment/Plan Problems: (1) S/P lumbar and lumbosacral fusion by anterior technique Onset Date: ~ 05/30/2019 Status: Acute Comment: She is progressing slowly after surgery. Consider acute rehabilitation unit consultation. Continue with physical therapy. Please note her pain medication the Dilaudid I believe is inducing nausea and vomiting however sorry scheduled to be turned off in 2 hours (2) S/P lumbar fusion Onset Date: ~ 05/31/2019 Status: Acute Comment: As above (3) Hypertension Status: Chronic Comment: Adequate control at this time Qualifiers: Hypertension type: essential hypertension Qualified Codes: I10 - Essential (primary) hypertension (4) Hyperlipidemia Status: Chronic Comment: Noted and on treatment Qualifiers: Hyperlipidemia type: pure hypercholesterolemia Qualified Codes: E78.00 - Pure hypercholesterolemia, unspecified (5) Folate deficiency anemia Status: Chronic Comment: I will replete her folate levels Qualifiers: Folate deficiency anemia type: unspecified folate deficiency Qualified Codes: D52.9 - Folate deficiency anemia, unspecified (6) Hyponatremia Status: Acute Comment: Is really an acute on chronic hyponatremia. I doubt that she has adrenal insufficiency to account for this that she would not have gone through 2 surgeries little on one. I will check her thyroids make sure this is not a medication cause but the narcotics also are famous for inducing this. We will go ahead and correct this. Result Diagram: 06/02/19 0443 06/02/19 0443 Results 24hrs Laboratory Tests Test 06/02/19 04:43 White Blood Count 8.4 Red Blood Count 2.74 L Hemoglobin 9.8 L Hematocrit 27.8 L Mean Corpuscular Volume 101.5 H Mean Corpuscular Hemoglobin 35.8 H Mean Corpuscular Hemoglobin Concent 35.3 Red Cell Distribution Width 12.2 Platelet Count 152 Mean Platelet Volume 9.9 Immature Granulocytes % 1.000 H Neutrophils % Segmented Neutrophils % (Manual) 61 Band Neutrophils % (Manual) 24 H Lymphocytes % Lymphocytes % (Manual) 2 L Reactive Lymphocytes % (Manual) 4 H Monocytes % Monocytes % (Manual) 9 Eosinophils % Basophils % Nucleated Red Blood Cells % 0.0 Immature Granulocytes # 0.080 H Neutrophils # Neutrophils # (Manual) 5.3 Band Neutrophils # 2.0 H Lymphocytes (Manual) 0.1 L Lymphocytes # Reactive Lymphocytes # 0.3 H Monocytes # Monocytes # (Manual) 0.7 Eosinophils # Basophils # Nucleated Red Blood Cells # Platelet Estimate NORMAL Poikilocytosis 1+ Anisocytosis 1+ Macrocytosis 1+ Sodium Level 124 L Potassium Level 4.3 Chloride Level 91 L Carbon Dioxide Level 27 Anion Gap 6 Blood Urea Nitrogen 3 L Creatinine 0.34 L Est Glomerular Filtrat Rate mL/min Glucose Level 127 Calcium Level 8.2 L Magnesium Level 1.6 L Subjective 24 Hr Interval Summary Free Text/Dictation Patient with nausea and vomiting which she believes is due to the Dilaudid pain medications Constitutional: no complaints (No fevers chills or sweats) Respiratory: no complaints (No cough no wheezing no shortness of breath) Cardiovascular: no complaints Gastrointestinal: nausea, vomiting Genitourinary: no complaints (Please note still has Pagan catheter) Musculoskeletal: back pain Exam/Review of Systems Exam Vitals Vital Signs Date Temp Pulse Resp B/P (MAP) Pulse Ox O2 O2 Flow FiO2 Time Delivery Rate 06/02/19 14 06:00 06/02/19 98.6 100 173/84 97 05:35 (113) 06/01/19 Nasal 2.0 20:00 Cannula Intake and Output 06/01/19 06/01/19 06/02/19 1515:00 23:00 07:00 IntakeIntake Total 1200 ml 630 ml 1600 ml OutputOutput Total 800 ml 750 ml BalanceBalance 1200 ml -170 ml 850 ml Constitutional: alert, oriented Neck: supple, non-tender Respiratory: clear to auscultation, normal air movement Cardiovascular: regular rate and rhythm, nl pulses Gastrointestinal: soft, nl liver, spleen, non-tender Results Results 24hrs Laboratory Tests Test 06/02/19 04:43 White Blood Count 8.4 Red Blood Count 2.74 L Hemoglobin 9.8 L Hematocrit 27.8 L Mean Corpuscular Volume 101.5 H Mean Corpuscular Hemoglobin 35.8 H Mean Corpuscular Hemoglobin Concent 35.3 Red Cell Distribution Width 12.2 Platelet Count 152 Mean Platelet Volume 9.9 Immature Granulocytes % 1.000 H Neutrophils % Segmented Neutrophils % (Manual) 61 Band Neutrophils % (Manual) 24 H Lymphocytes % Lymphocytes % (Manual) 2 L Reactive Lymphocytes % (Manual) 4 H Monocytes % Monocytes % (Manual) 9 Eosinophils % Basophils % Nucleated Red Blood Cells % 0.0 Immature Granulocytes # 0.080 H Neutrophils # Neutrophils # (Manual) 5.3 Band Neutrophils # 2.0 H Lymphocytes (Manual) 0.1 L Lymphocytes # Reactive Lymphocytes # 0.3 H Monocytes # Monocytes # (Manual) 0.7 Eosinophils # Basophils # Nucleated Red Blood Cells # Platelet Estimate NORMAL Poikilocytosis 1+ Anisocytosis 1+ Macrocytosis 1+ Sodium Level 124 L Potassium Level 4.3 Chloride Level 91 L Carbon Dioxide Level 27 Anion Gap 6 Blood Urea Nitrogen 3 L Creatinine 0.34 L Est Glomerular Filtrat Rate mL/min Glucose Level 127 Calcium Level 8.2 L Magnesium Level 1.6 L Medications Medication Current Medications Oxycodone HCl (Roxicodone) 5 mg Q4H PRN PO MODERATE PAIN LEVEL 4-6; Start 06/01/19 at 09:30 Losartan Potassium (Cozaar) 100 mg DAILY PO Last administered on 06/01/19at 08:46; Admin Dose 100 MG; Start 05/31/19 at 09:00 Atorvastatin Calcium (Lipitor) 10 mg HS PO Last administered on 06/01/19at 20:57; Admin Dose 10 MG; Start 05/30/19 at 21:00 Lorazepam (Ativan) 1 mg QHS PRN PO INSOMNIA or anxiety Last administered on 05/30/19at 22:29; Admin Dose 1 MG; Start 05/30/19 at 22:30 Potassium Chloride/Dextrose/ Sod Cl 1,000 ml @ 100 mls/hr Q10H IV Last administered on 06/01/19at 23:49; Admin Dose 100 MLS/HR; Start 05/31/19 at 13:18 Hydromorphone HCl (Dilaudid) 0.2 mg Q1H PRN IV .BREAKTHROUGH PAIN; Start 05/31/19 at 13:30 Ondansetron HCl (Zofran Inj) 4 mg Q6H PRN IV NAUSEA/VOMITING Last administered on 06/02/19at 05:36; Admin Dose 4 MG; Start 05/31/19 at 13:30 Bisacodyl (Dulcolax Supp) 10 mg DAILY PRN [place] .CONSTIPATION; Start 05/31/19 at 13:30 Docusate Sodium (Colace) 100 mg BID PO Last administered on 06/01/19at 20:57; Admin Dose 100 MG; Start 05/31/19 at 21:00 Al Hydrox/Mg Hydrox/Simethicone (Mag-Al Plus) 15 ml Q6H PRN PO .CONSTIPATION/DYSPEPSIA Last administered on 06/01/19at 18:34; Admin Dose 15 ML; Start 05/31/19 at 13:30 Acetaminophen (Tylenol Tab) 650 mg Q4H PRN PO GARCIA OR TEMP GREATER THAN 101.3F; Start 05/31/19 at 13:30 Cyclobenzaprine HCl (Flexeril) 10 mg TID PRN PO .MUSCLE SPASMS; Start 05/31/19 at 13:30 Phenol (Cepastat Lozenge) 1 lozenge PRN PRN [place] .SORE THROAT; Start 05/31/19 at 13:30 Diphenhydramine HCl (Benadryl) 25 mg Q6H PRN PO .ITCHING; Start 05/31/19 at 13:30 Diphenhydramine HCl (Benadryl) 25 mg Q6H PRN IV .ITCHING; Start 05/31/19 at 13:30 Naloxone HCl (Narcan) 0.2 mg Q2M PRN IV .RR 8 BREATHS/MIN OR LESS; Start 05/31/19 at 13:30 Hydromorphone HCl (Dilaudid SURFACE PLATE FINISHER) SURFACE PLATE FINISHER to be started in PACU Q4PCA IV Last administered on 06/01/19at 06:00; Admin Dose 6 MG; Start 05/31/19 at 13:30; Stop 06/02/19 at 09:30 Miscellaneous Information 1. Hold SURFACE PLATE FINISHER at 1,000... SURFACE PLATE FINISHER IV ; Start 05/31/19 at 13:30; Stop 06/02/19 at 10:00 Oxycodone HCl (Roxicodone) 10 mg Q4H PRN PO MODERATE PAIN LEVEL 4-6; Start 05/31/19 at 13:30 Folic Acid (Folic Acid) 1 mg DAILY PO ; Start 06/02/19 at 09:00 Sodium Chloride 500 ml @ 40 mls/hr [id number] IV ; Start 06/02/19 at 08:30; Status UNV Magnesium Sulfate 100 ml @ 25 mls/hr ONCE ONCE IVPB ; Start 06/02/19 at 09:30; Stop 06/02/19 at 13:29 IVANA BOSTON MD Jun 02, 2019 08:30
[2019-06-02] MEDS ORDERED: MAGNESIUM SULFATE 4 GM/100 ML 100 ML IVPB ONE (09:30)
[2019-06-02] MEDS ORDERED: THIAMINE 200 MG INJ IM ONE (09:30)
[2019-06-02] MEDS: LOSARTAN 50 MG TAB PO SCH (09:48)
[2019-06-02] MEDS: THIAMINE 100 MG TAB PO SCH (09:48)
[2019-06-02] MEDS: DOCUSATE SODIUM 100 MG CAP PO SCH ×2 (09:49→20:58)
[2019-06-02] MEDS: FOLIC ACID 1 MG TAB PO SCH (09:49)
[2019-06-02] MEDS: D5W-0.45 NACL + KCL 20 MEQ 1,000 ML IV SCH (10:14)
[2019-06-02] MEDS: AL HYDROX/MG HYDROX/SIMETH 30 ML CUP PO PRN (12:41)
[2019-06-02] MEDS: oxyCODONE 5 MG TAB PO PRN (12:45)
[2019-06-02] MEDS ORDERED: AMLODIPINE 5 MG TAB PO ONE (17:30)
[2019-06-02] MEDS: ATORVASTATIN 10 MG TAB PO SCH (20:58)
[2019-06-02] MEDS ORDERED: SOD FERRIC GLUC COMPLX 125 MG in SOD CHLORIDE 0.9% 100 ML IVPB ONE (23:30)
[2019-06-02] MEDS ORDERED: DEXTROSE 5%-LR 1,000 ML IV SCH (23:30)
[2019-06-03 01:51] VITALS: BP 168/85; PULSE 98; RESP 18
[2019-06-03] MEDS: AL HYDROX/MG HYDROX/SIMETH 30 ML CUP PO PRN ×3 (05:23→20:34)
[2019-06-03] MEDS: BISACODYL 10 MG SUPP PR PRN (05:23)
[2019-06-03 07:18] VITALS: BP 130/64; PULSE 65; RESP 18
[2019-06-03] MEDS: DOCUSATE SODIUM 100 MG CAP PO SCH ×2 (09:17→20:34)
[2019-06-03] MEDS: THIAMINE 100 MG TAB PO SCH (09:18)
[2019-06-03] MEDS: FOLIC ACID 1 MG TAB PO SCH (09:18)
[2019-06-03] MEDS: LOSARTAN 50 MG TAB PO SCH (09:18)
[2019-06-03] MEDS: oxyCODONE 5 MG TAB PO PRN (10:57)
--- NOTE | 2019-06-03 12:31 | PN ---
Date/Time of Note Date/Time of Note DATE: 06/03/19 TIME: 12:28 Assessment/Plan VTE Prophylaxis Risk score (from [facility] [place] [place])>0 risk: 6 SCD applied (from [facility]): Yes SCD contraindicated: other Pharmacological prophylaxis: NA/contraindicated (post lami), other Pharm contraindication: surgical contra Lines/Catheters IV Catheter Type (from [place]): Peripheral IV Urinary Cath still in place: Yes Reason Cath still needed: urinary retention Assessment/Plan Result Diagram: 06/03/19 0437 06/03/197 Results 24hrs Laboratory Tests Test 06/02/19 17:30 06/02/19 17:35 06/03/19 04:37 06/03/19 09:45 Urine Osmolality 380 505 Urine Random Sodium 115 H 141 H Sodium Level 121 L 123 L White Blood Count 7.4 Red Blood Count 2.50 L Hemoglobin 8.9 L Hematocrit 25.3 L Mean Corpuscular 101.2 H Volume Mean Corpuscular 35.6 H Hemoglobin Mean Corpuscular 35.2 Hemoglobin Concent Red Cell 12.1 Distribution Width Platelet Count 159 Mean Platelet Volume 10.2 Immature 0.700 H Granulocytes % Neutrophils % Segmented 80 H Neutrophils % (Manual) Band Neutrophils % 8 H (Manual) Lymphocytes % Lymphocytes % 7 L (Manual) Monocytes % Monocytes % (Manual) 4 Eosinophils % Eosinophils % 1 (Manual) Basophils % Nucleated Red Blood 0.0 Cells % Immature 0.050 H Granulocytes # Neutrophils # Neutrophils # 6.0 (Manual) Band Neutrophils # 0.5 Lymphocytes (Manual) 0.5 L Lymphocytes # Monocytes # Monocytes # (Manual) 0.2 L Eosinophils # Basophils # Nucleated Red Blood Cells # Platelet Estimate NORMAL Spherocytes 1+ Potassium Level 3.3 L Chloride Level 93 L Carbon Dioxide Level 25 Anion Gap 5 Blood Urea Nitrogen 4 L Creatinine 0.37 L Est Glomerular Filtrat Rate mL/min Glucose Level 117 Calcium Level 7.6 L Magnesium Level 1.7 Subjective 24 Hr Interval Summary Free Text/Dictation post ant, post back surgery, still uncomfortable, but has been up. considering aru transfer vs home with help bp was up, ok now hyuponatremia persists, leave on 3%saline for now, stop other iv fluids. urine sodium is still high cw siadh with multiple causes alert, lungs clear, abd soft, no edema, moves all 4 Musculoskeletal: back pain Exam/Review of Systems Exam Vitals Vital Signs Date Temp Pulse Resp B/P (MAP) Pulse Ox O2 O2 Flow FiO2 Time Delivery Rate 06/03/19 98.1 65 18 130/64 96 07:18 (86) 06/02/19 Room Air 08:21 06/01/19 2.0 20:00 Intake and Output 06/02/19 06/02/19 06/03/19 1515:00 23:00 07:00 IntakeIntake Total 680 ml 340 ml 715 ml OutputOutput Total 1200 ml 1700 ml BalanceBalance 680 ml -860 ml -985 ml Results Results 24hrs Laboratory Tests Test 06/02/19 17:30 06/02/19 17:35 06/03/19 04:37 06/03/19 09:45 Urine Osmolality 380 505 Urine Random Sodium 115 H 141 H Sodium Level 121 L 123 L White Blood Count 7.4 Red Blood Count 2.50 L Hemoglobin 8.9 L Hematocrit 25.3 L Mean Corpuscular 101.2 H Volume Mean Corpuscular 35.6 H Hemoglobin Mean Corpuscular 35.2 Hemoglobin Concent Red Cell 12.1 Distribution Width Platelet Count 159 Mean Platelet Volume 10.2 Immature 0.700 H Granulocytes % Neutrophils % Segmented 80 H Neutrophils % (Manual) Band Neutrophils % 8 H (Manual) Lymphocytes % Lymphocytes % 7 L (Manual) Monocytes % Monocytes % (Manual) 4 Eosinophils % Eosinophils % 1 (Manual) Basophils % Nucleated Red Blood 0.0 Cells % Immature 0.050 H Granulocytes # Neutrophils # Neutrophils # 6.0 (Manual) Band Neutrophils # 0.5 Lymphocytes (Manual) 0.5 L Lymphocytes # Monocytes # Monocytes # (Manual) 0.2 L Eosinophils # Basophils # Nucleated Red Blood Cells # Platelet Estimate NORMAL Spherocytes 1+ Potassium Level 3.3 L Chloride Level 93 L Carbon Dioxide Level 25 Anion Gap 5 Blood Urea Nitrogen 4 L Creatinine 0.37 L Est Glomerular Filtrat Rate mL/min Glucose Level 117 Calcium Level 7.6 L Magnesium Level 1.7 Medications Medication Current Medications Oxycodone HCl (Roxicodone) 5 mg Q4H PRN PO MODERATE PAIN LEVEL 4-6; Start 06/01/19 at 09:30 Losartan Potassium (Cozaar) 100 mg DAILY PO Last administered on 06/03/19at 09:18; Admin Dose 100 MG; Start 05/31/19 at 09:00 Atorvastatin Calcium (Lipitor) 10 mg HS PO Last administered on 06/02/19 20:5 8; Admin Dose 10 MG; Start 05/30/19 at 21:00 Lorazepam (Ativan) 1 mg QHS PRN PO INSOMNIA or anxiety Last administered on 05/30/19 22:29; Admin Dose 1 MG; Start 05/30/19 at 22:30 Hydromorphone HCl (Dilaudid) 0.2 mg Q1H PRN IV .BREAKTHROUGH PAIN; Start 05/31/19 at 13:30 Ondansetron HCl (Zofran Inj) 4 mg Q6H PRN IV NAUSEA/VOMITING Last administered on 06/02/19 05:36; Admin Dose 4 MG; Start 05/31/19 at 13:30 Bisacodyl (Dulcolax Supp) 10 mg DAILY PRN [place] .CONSTIPATION Last administered on 06/03/19at 05:23; Admin Dose 10 MG; Start 05/31/19 at 13:30 Docusate Sodium (Colace) 100 mg BID PO Last administered on 06/03/19 09:17; Admin Dose 100 MG; Start 05/31/19 at 21:00 Al Hydrox/Mg Hydrox/Simethicone (Mag-Al Plus) 15 ml Q6H PRN PO .CONSTIPATION/DYSPEPSIA Last administered on 06/03/19 05:23; Admin Dose 15 ML; Start 05/31/19 at 13:30 Acetaminophen (Tylenol Tab) 650 mg Q4H PRN PO GARCIA OR TEMP GREATER THAN 101.3F; Start 05/31/19 at 13:30 Cyclobenzaprine HCl (Flexeril) 10 mg TID PRN PO .MUSCLE SPASMS; Start 05/31/19 at 13:30 Phenol (Cepastat Lozenge) 1 lozenge PRN PRN [place] .SORE THROAT; Start 05/31/19 at 13:30 Diphenhydramine HCl (Benadryl) 25 mg Q6H PRN PO .ITCHING; Start 05/31/19 at 13: 30 Diphenhydramine HCl (Benadryl) 25 mg Q6H PRN IV .ITCHING; Start 05/31/19 at 13:30 Naloxone HCl (Narcan) 0.2 mg Q2M PRN IV .RR 8 BREATHS/MIN OR LESS; Start 05/31/19 at 13:30 Oxycodone HCl (Roxicodone) 10 mg Q4H PRN PO MODERATE PAIN LEVEL 4-6; Start 05/31/19 at 13:30 Folic Acid (Folic Acid) 1 mg DAILY PO Last administered on 06/03/19 09:18; Admin Dose 1 MG; Start 06/02/19 at 09:00 Thiamine HCl (Vitamin B1) 100 mg DAILY PO Last administered on 06/03/19 09:18; Admin Dose 100 MG; Start 06/02/19 at 09:00 Clonidine (Catapres) 0.1 mg Q8 PRN PO SBP 160 OR ABOVE Last administered on 06/03/19 01:54; Admin Dose 0.1 MG; Start 06/02/19 at 10:30 Oxycodone HCl (Roxicodone) 2.5 mg Q4H PRN PO MODERATE PAIN LEVEL 4-6 Last administered on 06/03/19 10:57; Admin Dose 2.5 MG; Start 06/02/19 at 11:00 Dextrose/Lactated Ringer's 1,000 ml @ 75 mls/hr [id number] IV Last administered on 06/03/19 00:04; Admin Dose 75 MLS/HR; Start 06/02/19 at 23:30 Ferric Sodium Gluconate Complex 125 mg/Sodium Chloride 100 ml @ 100 mls/hr DAILY@1300 IVPB ; Start 06/03/19 at 13:00; Stop 06/05/19 at 13:59 VASYL PETTIT MD Jun 03, 2019 12:31
--- NOTE | 2019-06-03 12:54 | PN ---
Date/Time of Note Date/Time of Note DATE: 06/03/19 TIME: 12:53 Assessment/Plan Lines/Catheters IV Catheter Type (from Nrs): Peripheral IV Pagan in Place (from Nrs): Yes Assessment/Plan Assessment/Plan Continue with physical therapy. Monitor hyponatremia and labs. If hyponatremia improves, possible discharge tomorrow-we will defer to Dr. Mendoza Subjective 24 Hr Interval Summary Feeling better. Had bowel movement. Still has abdominal distention. Exam/Review of Systems Vital Signs Vitals Vital Signs Date Temp Pulse Resp B/P (MAP) Pulse Ox O2 O2 Flow FiO2 Time Delivery Rate 06/03/19 98.1 65 18 130/64 96 07:18 (86) 06/02/19 Room Air 08:21 06/01/19 2.0 20:00 Intake and Output 06/02/19 06/02/19 06/03/19 1414:59 22:59 06:59 IntakeIntake Total 680 ml 340 ml 715 ml OutputOutput Total 1200 ml 1700 ml BalanceBalance 680 ml -860 ml -985 ml Exam Free Text/Dictation Abdomen soft but distended. Incisions clean. Neurologic intact Results Result Diagram: 06/03/19 0437 06/03/19 0437 MEAGAN DURAN MD Jun 03, 2019 12:54
[2019-06-03] MEDS: SOD FERRIC GLUC COMPLX 125 MG in SOD CHLORIDE 0.9% 100 ML IVPB SCH (14:54)
[2019-06-03] MEDS ORDERED: NACL 3% 500 ML IV SCH (15:00)
[2019-06-03 15:36] VITALS: BP 152/74; PULSE 85; RESP 18
[2019-06-03] MEDS ORDERED: CALCIUM CARBONATE 500 MG CHEW TAB PO PRN (18:00)
[2019-06-03] MEDS: ATORVASTATIN 10 MG TAB PO SCH (20:34)
[2019-06-03 21:15] VITALS: BP 168/74; PULSE 78; RESP 20
[2019-06-04 03:08] VITALS: BP 155/70; PULSE 77
[2019-06-04] MEDS: BISACODYL 10 MG SUPP PR PRN (05:47)
[2019-06-04] MEDS ORDERED: POTASSIUM CHLORIDE (SR) 20 MEQ TAB PO STA ×2 (07:45→11:17)
[2019-06-04] MEDS ORDERED: NACL 3% 500 ML IV SCH (08:00)
[2019-06-04] MEDS: POTASSIUM CHLORIDE 100 ML IVPB SCH ×3 (08:00→11:00)
[2019-06-04] MEDS: LOSARTAN 50 MG TAB PO SCH (09:09)
[2019-06-04] MEDS: DOCUSATE SODIUM 100 MG CAP PO SCH (09:09)
[2019-06-04] MEDS: THIAMINE 100 MG TAB PO SCH (09:09)
[2019-06-04] MEDS: FOLIC ACID 1 MG TAB PO SCH (09:09)
[2019-06-04] MEDS: oxyCODONE 5 MG TAB PO PRN (09:10)
[2019-06-04 09:50] VITALS: BP 161/79; PULSE 83; RESP 18
--- NOTE | 2019-06-04 11:30 | PDOCDIS ---
Discharge Instructions DIAGNOSIS Discharge Diagnosis Lumbar spinal stenosis with radiculopathy; status post anterior and posterior lumbar spinal fusion and laminectomy; chronic hyponatremia; iron deficiency anemia; hypertension; hyperlipidemia; folate deficiency CONDITION [id number] Patient Condition: [id number] Fair HOME CARE INSTRUCTIONS: [id number] Diet Instructions: [id number] Regular ACTIVITY: [id number] Activity Restrictions: [id number] Slowly Increase Activity FOLLOW UP/APPOINTMENTS Follow-up Plan Dr. Morales in 3 weeks; primary care physician in 4 weeks IVANA BOSTON MD Jun 04, 2019 11:30
--- NOTE | 2019-06-04 11:30 | DS ---
Date/Time of Note Date/Time of Note DATE: 06/04/19 TIME: 11:22 Discharge Summary Admission/Discharge Info Admit Date/Time May 30, 2019 at 09:55 Discharge Date/Time June 04, 2019 Discharge Diagnosis Lumbar spinal stenosis with radiculopathy; status post anterior and posterior lumbar spinal fusion and laminectomy; chronic hyponatremia; iron deficiency anemia; hypertension; hyperlipidemia; folate deficiency Patient Condition: Fair Consults Internal medicine-Dr. Mendoza; vascular surgery Dr. Novak Procedures Lumbar spinal fusion by anterior technique followed by lumbar spinal fusion by posterior technique; PROCEDURE: 1. Anterior lumbar interbody fusion at L2-L3 and L3-L4. 2. Placement of intervertebral mechanical device at L2-L3 and L3-L4. 3. Use of allograft. 4. Use of operative microscope. 5. Use of C-arm fluoroscopy with interpretation without radiologist present. 6. Intraoperative neuromonitoring. OPERATION PERFORMED: 1. Anterior retroperitoneal exposure interbody fusion L5-S1. 2. Anterior retroperitoneal exposure interbody fusion L4-L5. PROCEDURE: 1. Anterior lumbar interbody fusion at L4-L5 and L5-S1. 2. Anterior hardware placement at L4-L5 and L5-S1. 3. Placement of intervertebral mechanical device at L4-L5 and L5-S1. 4. Use of allograft. 5. Use of C-arm fluoroscopy with interpretation without radiologist present. 6. Intraoperative neuromonitoring. Hx of Present Illness HISTORY OF PRESENT ILLNESS: La Min is a 73-year-old woman who has had issues with her back, most recent surgery was a laminectomy in 01/2018, which did not totally get rid of her problem and currently being admitted for anterior and posterior fusion of her lumbar spine. Hospital Course 73-year-old female with a reported chronic history of hyponatremia was brought in for elective spinal surgery. She underwent anterior approach followed by posterior approach in sequence successfully. The only issue she had was profound nausea and vomiting due to Dilaudid. 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 In addition she had some hypokalemia and was also identified as having iron deficiency and folate deficiency. These have been replaced. She is now stable for discharge. She has the capacity for medical decision making. Her rehabilitation potential is good although this will be a slow process Home Meds Reported Medications Bromelains (BROMELAINS) 500 Mg Tablet, 500 MG PO DAILY, TAB 02/08/18 Ibandronate Sodium* (Boniva*) 150 Mg Tablet, 150 MG PO ONCE A MONTH, TAB 02/08/18 Olmesartan Medoxomil (Olmesartan Medoxomil) 20 Mg Tablet, 20 MG PO DAILY, TAB 02/08/18 Pravastatin Sodium (Pravastatin Sodium) 20 Mg Tablet, 20 MG PO HS, TAB 02/08/18 Follow-up Plan Dr. Morales in 3 weeks Primary Care Provider Bob Gan MD Time spent on discharge: > 30 minutes Pending Labs Laboratory Tests Test 06/03/19 21:08 06/04/19 05:00 06/04/19 09:48 Sodium Level 123 125 mmol/L (135-144) mmol/L (135-144) Urine Osmolality 376 mOsm/kg (250-1200) Potassium Level 3.0 mmol/L (3.5-5.1) Chloride Level 93 mmol/L (97-110) Carbon Dioxide 24 mmol/L (21-31) Level Anion Gap 8 (5-13) Blood Urea Nitrogen 3 mg/dl (7-20) Creatinine 0.34 mg/dl (0.44-1.00) Est Glomerular mL/min (>60) Filtrat Rate mL/min Glucose Level 112 mg/dl (70-220) Calcium Level 8.1 mg/dl (8.4-10.2) Random Cortisol 16.9 ug/dl Copies To: CC: MEAGAN MORALES MD; YU EDGAR MD ; IVANA BOSTON MD Jun 04, 2019 11:30
[2019-06-04] MEDS ORDERED: FER325 PO (11:32)
[2019-06-04] MEDS ORDERED: FOLI-49 PO (11:32)
[2019-06-04] MEDS: SOD FERRIC GLUC COMPLX 125 MG in SOD CHLORIDE 0.9% 100 ML IVPB SCH (13:00)
--- NOTE | 2019-06-06 14:32 | DS ---
Date/Time of Note Date/Time of Note DATE: 06/06/19 TIME: 14:31 Discharge Summary Admission/Discharge Info Admit Date/Time May 30, 2019 at 09:55 Discharge Date/Time Jun 04, 2019 at 15:30 Discharge Diagnosis Lumbar spinal stenosis with radiculopathy; status post anterior and posterior lumbar spinal fusion and laminectomy; chronic hyponatremia; iron deficiency anemia; hypertension; hyperlipidemia; folate deficiency Procedures Lumbar fusion Hospital Course Patient was [facility] after undergoing lumbar fusion. Her postoperative course was uncomplicated aside from hyponatremia. By June 04 she was deemed stable for discharge with follow-up arranged with the undersigned. This dentition working to. Home Meds Active Scripts Ferrous Sulfate* (Ferrous Sulfate*) 325 Mg Tabec, 325 MG PO DAILY for 30 Days, #30 TAB 1 Refill Prov:IVANA BOSTON MD 06/04/19 Folic Acid* (Folic Acid*) 1 Mg Tablet, 1 MG PO DAILY for 30 Days, #30 TAB Prov:IVANA BOSTON MD 06/04/19 Reported Medications Bromelains (BROMELAINS) 500 Mg Tablet, 500 MG PO DAILY, TAB 02/08/18 Ibandronate Sodium* (Boniva*) 150 Mg Tablet, 150 MG PO ONCE A MONTH, TAB 02/08/18 Olmesartan Medoxomil (Olmesartan Medoxomil) 20 Mg Tablet, 20 MG PO DAILY, TAB 02/08/18 Pravastatin Sodium (Pravastatin Sodium) 20 Mg Tablet, 20 MG PO HS, TAB 02/08/18 Follow-up Plan Dr. Morales in 3 weeks; primary care physician in 4 weeks Primary Care Provider MD ROGER Krishnamurthy BABAK MD Jun 06, 2019 14:32
== END 2019-06-04 15:30 | disposition home health service (06) | DRG 457 ==
LOC: REC 09:55 → MS1 17:09
PROVIDERS: ADMIT Specialist; ATTEND Specialist
PROC: 0ST20ZZ Resection of Lumbar Vertebral Disc, Open Approach (ICD-10-PCS; 2019-05-30)
PROC: 4A11X4G Monitoring of Peripheral Nervous Electrical Activity, Intraoperative, External Approach (ICD-10-PCS; 2019-05-30)
PROC: 0SG10A0 Fusion of 2 or more Lumbar Vertebral Joints with Interbody Fusion Device, Anterior Approach, Anterior Column, Open Approach (ICD-10-PCS; principal; 2019-05-30 12:00)
PROC: 0ST20ZZ Resection of Lumbar Vertebral Disc, Open Approach (ICD-10-PCS; 2019-05-31)
PROC: 0SG00A0 Fusion of Lumbar Vertebral Joint with Interbody Fusion Device, Anterior Approach, Anterior Column, Open Approach (ICD-10-PCS; 2019-05-31)
PROC: 0SG30A0 Fusion of Lumbosacral Joint with Interbody Fusion Device, Anterior Approach, Anterior Column, Open Approach (ICD-10-PCS; 2019-05-31)
PROC: 0ST40ZZ Resection of Lumbosacral Disc, Open Approach (ICD-10-PCS; 2019-05-31)
PROC: 0SG10AJ Fusion of 2 or more Lumbar Vertebral Joints with Interbody Fusion Device, Posterior Approach, Anterior Column, Open Approach (ICD-10-PCS; 2019-05-31)
PROC: 0SG30AJ Fusion of Lumbosacral Joint with Interbody Fusion Device, Posterior Approach, Anterior Column, Open Approach (ICD-10-PCS; 2019-05-31)
PROC: 4A11X4G Monitoring of Peripheral Nervous Electrical Activity, Intraoperative, External Approach (ICD-10-PCS; 2019-05-31)
DX: M41.56 Other secondary scoliosis, lumbar region (principal); E87.1 Hypo-osmolality and hyponatremia; M41.57 Other secondary scoliosis, lumbosacral region; M48.061 Spinal stenosis, lumbar region without neurogenic claudication; M51.17 Intervertebral disc disorders with radiculopathy, lumbosacral region; I10 Essential (primary) hypertension; E78.5 Hyperlipidemia, unspecified; D50.9 Iron deficiency anemia, unspecified; E87.6 Hypokalemia; E83.42 Hypomagnesemia; D52.9 Folate deficiency anemia, unspecified; R11.2 Nausea with vomiting, unspecified; T40.2X5A Adverse effect of other opioids, initial encounter
CPT/HCPCS: 71275; 72020; 72114; 80048; 80053; 81003; 82533; 82607; 82728; 82746; 83540; 83735; 83935; 84100; 84295; 84300; 84439; 84443; 85025; 86850; 86900; 86901; 86920; 86999; 87086; 88304; 97116; 97162; 97530; C1713; J0360; J0461; J0690; J1100; J1170; J1200; J1644; J2175; J2250; J2405; J2710; J2765; J2916; J3010; J3411; J3480; J7121; Q9967; V2790